=== PATIENT | female | born 1985 | race Caucasian/White ===

== ENCOUNTER 2016-04-17 22:19 | Emergency (ER) | payer OTHER ==
[2016-04-17 22:35] VITALS: BP 138/80
--- NOTE | 2016-04-17 23:19 | ED ---
General Adult HPI - General Chief complaint: Upper Respiratory Infection Stated complaint: abcess tooth, cough, leg pain Source: patient, RN notes reviewed, old records reviewed Mode of arrival: EMS Limitations: no limitations - History of Present Illness Initial comments: Chief complaint history of present illness this is a 30-year-old female with several complaints versus a productive cough on again off again for 2 weeks. No fever. The second complaint is chronic pain to her right lower tooth #32. She's been on antibiotics twice over the past 9 months states she did not finish the antibiotics the last time. States when she gets into the dental chair after the x-rays she freaks out and leaves. She is afraid to have the dental work done. She states she's saving up money to have the anesthetic to put her to sleep. She reports she smokes both cigarettes and marijuana so it's hard to save enough money to have the dentist put her to sleep. Patient also has asthma. Another reason why I strongly encouraged her to stop smoking. - Related Data Home Medications Medication Instructions Recorded Confirmed Albuterol Inhaler [Ventolin Hfa 2 puff INHALATION RT-Q6H PRN 05/12/14 04/17/16 Inhaler] Acetaminophen Tab [Tylenol Tab] 650 mg PO Q6H PRN 04/17/16 04/17/16 Benzocain/Benzalkonm Oral Gel 1 gm MM BID PRN 04/17/16 04/17/16 [Orajel Anesthetic Max Strength] Ibuprofen [Motrin] 400 mg PO Q6HR PRN 04/17/16 04/17/16 Previous Rx's Medication Instructions Recorded Azithromycin [Zithromax Z-pack] 250 mg PO DIRECTED #6 tab 04/17/16 Ibuprofen [Motrin] 600 mg PO Q6HR PRN #20 tab 04/17/16 Allergies Allergy/AdvReac Type Severity Reaction Status Date / Time morphine Allergy Dyspnea Verified 04/17/16 22:30 Review of Systems ROS Statement: Those systems with pertinent positive or pertinent negative responses have been documented in the HPI. Review of systems no complaint of headache or visual acuity changes. She has chronic pain to the tooth number to. She also reports productive cough greenish in color for 2 weeks. No chest pain no shortness of breath no abdominal pain no nausea no vomiting or diarrhea. On-again off-again discomfort to her legs no back pain or back issues. Able to ambulate full range of motion of her upper and lower extremities. All systems were reviewed. Past medical problems significant for heroin abuse up until 4 years ago continue to smoke marijuana cigarettes. She has history of asthma and chronic knee pain. Surgeries include , tonsillectomy, tubal ligation, 3 knee surgeries. Family history not. Patient has ALLERGIES to morphine. ROS Other: All systems not noted in ROS Statement are negative. Past Medical History Past Medical History: Asthma Additional Past Medical History / Comment(s): KNEE PAIN, MIGRAINES/ back pain History of Any Multi-Drug Resistant Organisms: MRSA Date of last positivie culture/infection: 10/23/2013 MDRO Source:: Buttock Past Surgical History: Section, Orthopedic Surgery, Tonsillectomy, Tubal Ligation Additional Past Surgical History / Comment(s): KNEE SURGERY X3 Past Psychological History: No Psychological Hx Reported Smoking Status: Current every day smoker Past Alcohol Use History: None Reported Past Drug Use History: Heroin, Marijuana General Exam - General Exam Comments Initial Comments: General: The patient is awake and alert, several complaints as described in the chief complaint. Vital signs show temperature 97.9 pulse 96 respiratory 20 pulse ox 95% room air blood pressure 130/80. Mildly elevated systolic noted. Patient will be advised to follow-up with family physician in next 1-4 weeks. Eye: Pupils are equal, round and reactive to light, extra-ocular movements are intact ; there is normal conjunctiva bilaterally. No signs of icterus. Ears, nose, mouth and throat: There are moist mucous membranes and no oral lesions. Though the patient complains of dental pain no significant evidence of dental caries that she describes. No evidence of obvious abscess on the gum margin. Neck: The neck is supple, there is no tenderness . Cardiovascular: There is a regular rate and rhythm. No murmur, rub or gallop is appreciated. Respiratory: Lungs are clear to auscultation, respirations are non-labored, breath sounds are equal. No wheezes, stridor, rales, or rhonchi. States she has green productive cough for 2 weeks. Smokes both marijuana and cigarettes. Gastrointestinal: No complaint of nausea vomiting or diarrhea. Back: No complains low back pain. Musculoskeletal: Occasional discomfort to her lower extremities does not prevent her from walking. No complaints of any balance problems. Cranial nerves, no complaint of any motor or sensory deficits. No focal or lateralizing findings noted. Skin: Skin is warm and dry and no rashes or lesions are noted. Psychiatric: Not complaining of any problems with depression. Limitations: no limitations Course Vital Signs 04/17/16 22:31 Temperature 97.9 F Pulse Rate 96 Respiratory 20 Rate Blood Pressure 138/80 O2 Sat by Pulse 95 Oximetry Medical Decision Making - Medical Decision Making Chest x-ray was done and reviewed by radiologist his impression is there is mild pulmonary vascular congestion. Chronic lung changes are suggested. There is no focal airspace opacity, pleural effusion or pneumothorax seen. Cardiac silhouette size within normal limits. The osseous structures are intact. Impression; mild pulmonary vascular congestion. No focal pneumonia. Chronic lung changes. As read by Dr. Holguin The patient will be placed on a Z-Moses. Told to follow-up with her family physician, her dentist. Stop smoking. Take ibuprofen for pain. Disposition Clinical Impression: Bronchitis, Toothache Disposition: HOME SELF-CARE Condition: Fair Instructions: Upper Respiratory Infection (ED), Toothache (ED) Additional Instructions: Stop smoking. Take Z-Moses until complete. Use ibuprofen for pain. Follow-up dentist. Prescriptions: Azithromycin [Zithromax Z-pack] 250 mg PO DIRECTED #6 tab Ibuprofen [Motrin] 600 mg PO Q6HR PRN #20 tab PRN Reason: Pain Time of Disposition: 23:33
--- NOTE | 2016-04-17 23:20 | XR ---
EXAMINATION TYPE: XR chest 2V DATE OF EXAM: 04/17/2016 11:02 PM COMPARISON: 02/14/2015 HISTORY: Productive cough. TECHNIQUE: Frontal and lateral views of the chest are obtained. FINDINGS: There is mild pulmonary vascular congestion. Chronic lung changes are suggested. There is no focal air space opacity, pleural effusion, or pneumothorax seen. The cardiac silhouette size is within normal limits. The osseous structures are intact. IMPRESSION: 1. Mild pulmonary vascular congestion. 2. No focal pneumonia. 3. Chronic lung changes.
[2016-04-17 23:42] VITALS: PULSE 80; RESP 18; TEMP 98.4
== END 2016-04-17 23:44 | disposition home or self-care (01) ==
LOC: EC 22:19
DX: J40 Bronchitis, not specified as acute or chronic (principal); K08.89 Other specified disorders of teeth and supporting structures; J45.909 Unspecified asthma, uncomplicated; Z88.5 Allergy status to narcotic agent; F12.90 Cannabis use, unspecified, uncomplicated; F17.210 Nicotine dependence, cigarettes, uncomplicated
CPT/HCPCS: 71020; 99283

== ENCOUNTER 2016-05-05 22:04 | Emergency (ER) | payer OTHER ==
[2016-05-05] MEDS ORDERED: IPRATROPIUM-ALBUTEROL 3 ML NEB INHALATION STA (22:35)
--- NOTE | 2016-05-05 22:49 | XR ---
EXAMINATION TYPE: XR chest 2V DATE OF EXAM: 05/05/2016 10:40 PM COMPARISON: 04/17/2016 HISTORY: Chest pain, cough. TECHNIQUE: Frontal and lateral views of the chest are obtained. FINDINGS: Mild peribronchial cuffing is noted with possible chronic bronchitis changes. There is mild pulmonary vascular congestion. There is no focal air space opacity, pleural effusion, or pneumothorax seen. The cardiac silhouette size is within normal limits. The osseous structures are intact. IMPRESSION: 1. Possible mild chronic bronchitis. 2. Pulmonary vascular congestion. 3. No focal pneumonia.
[2016-05-05] MEDS ORDERED: ORPHENADRINE 30 MG/ML 2 ML VIAL IM STA (23:27)
--- NOTE | 2016-05-05 23:45 | ED ---
URI HPI - General Chief Complaint: Upper Respiratory Infection Stated Complaint: IVORY Time Seen by Provider: 05/05/16 22:29 Source: patient, RN notes reviewed, old records reviewed Mode of arrival: ambulatory Limitations: no limitations - History of Present Illness Initial Comments: Patient is a 30 year old female with chief complaint of increased cough and back pain from coughing. Patient reports she is a smoker and has continued to smoke the same amount. Patient reports that the symptoms have lasted one week. She reports she feels short of breath withincreased cough. she states that her chest feels heavy. She denies diaphoresis, nausea, sinus congestion, sore throat , nausea, vomiting, abdominal pain. She states that she has a history of sick contacts with pneumonia and bronchitis. She reports productive cough. - Related Data Home Medications Medication Instructions Recorded Confirmed Albuterol Inhaler [Ventolin Hfa 2 puff INHALATION RT-Q6H PRN 05/12/14 04/17/16 Inhaler] Acetaminophen Tab [Tylenol Tab] 650 mg PO Q6H PRN 04/17/16 04/17/16 Benzocain/Benzalkonm Oral Gel 1 gm MM BID PRN 04/17/16 04/17/16 [Orajel Anesthetic Max Strength] Ibuprofen [Motrin] 400 mg PO Q6HR PRN 04/17/16 04/17/16 Previous Rx's Medication Instructions Recorded Azithromycin [Zithromax Z-pack] 250 mg PO DIRECTED #6 tab 04/17/16 Ibuprofen [Motrin] 600 mg PO Q6HR PRN #20 tab 04/17/16 Azithromycin [Zithromax Z-pack] 250 mg PO DIRECTED #6 tab 05/05/16 Cyclobenzaprine [Flexeril] 10 mg PO TID #15 tab 05/05/16 methylPREDNISolone Dose Pack 4 mg PO DIRECTED #21 package 05/05/16 [Medrol Dose Pack] Allergies Allergy/AdvReac Type Severity Reaction Status Date / Time morphine Allergy Dyspnea Verified 04/17/16 22:30 Review of Systems ROS Statement: Those systems with pertinent positive or pertinent negative responses have been documented in the HPI. ROS Other: All systems not noted in ROS Statement are negative. Past Medical History Past Medical History: Asthma Additional Past Medical History / Comment(s): KNEE PAIN, MIGRAINES/ back pain History of Any Multi-Drug Resistant Organisms: MRSA Date of last positivie culture/infection: 10/23/2013 MDRO Source:: Buttock Past Surgical History: Section, Orthopedic Surgery, Tonsillectomy, Tubal Ligation Additional Past Surgical History / Comment(s): KNEE SURGERY X3 Past Psychological History: No Psychological Hx Reported Smoking Status: Current every day smoker Past Alcohol Use History: None Reported Past Drug Use History: Heroin, Marijuana General Exam - General Exam Comments Initial Comments: Obese 30 year old female, no acute distress. Limitations: no limitations General appearance: alert, in no apparent distress Head exam: Present: atraumatic, normocephalic, normal inspection Eye exam: Present: normal appearance, PERRL, EOMI. Absent: scleral icterus, conjunctival injection, periorbital swelling ENT exam: Present: normal exam, normal oropharynx, mucous membranes moist, TM's normal bilaterally, normal external ear exam Neck exam: Present: normal inspection. Absent: tenderness, meningismus, lymphadenopathy Respiratory exam: Present: normal lung sounds bilaterally, rhonchi (clears with cough. ). Absent: respiratory distress, wheezes, rales, stridor Cardiovascular Exam: Present: regular rate, normal rhythm, normal heart sounds. Absent: systolic murmur, diastolic murmur, rubs, gallop, clicks GI/Abdominal exam: Present: soft, normal bowel sounds. Absent: distended, tenderness, guarding, rebound, rigid Extremities exam: Present: normal inspection, full ROM, normal capillary refill. Absent: tenderness, pedal edema, joint swelling, calf tenderness Back exam: Present: normal inspection Neurological exam: Present: alert, oriented X3, CN II-XII intact Psychiatric exam: Present: normal affect, normal mood Skin exam: Present: warm, dry, intact, normal color. Absent: rash Course Vital Signs 05/05/16 05/05/16 05/05/16 22:10 22:51 22:58 Temperature 96.9 F L Pulse Rate 81 84 Respiratory 20 22 Rate Blood Pressure 162/84 O2 Sat by Pulse 98 Oximetry 05/05/16 05/05/16 23:04 23:48 Temperature 98 F Pulse Rate 84 89 Respiratory 18 Rate Blood Pressure 133/75 O2 Sat by Pulse 98 Oximetry Medical Decision Making - Medical Decision Making Is a 30-year-old FEMA one week of increased cough and shortness of breath. Patient also reports she has a pain that radiates between her shoulder blades. EKG was performed EKG shows no any acute changes from previous one done on February 14. No evidence of ST elevation or T-wave inversions. Patient will be placed on steroid pack and instructed to complete her previously prescription of azithromycin and she did not take a few weeks ago Patient advised to follow up with primary care. Patients symptoms improved with douneb treatment. Return to the EC if any alarming signs or symptoms occur. Patient understand treatment plan will comply. Return parameters were discussed. 05/06/16 04:23 EKG shows normal sinus rhythm. Injury of 79 bpm. MS interval 140 ms. QRS duration 84 ms. QT/QTc is 36/442 ms. Compared this EKG with previous EKG done 02/14/2015 and there is no evidence of any acute abnormalities. - Radiology Data Radiology results: report reviewed Chest x-ray shows mild pulmonary vascular congestion consistent with chronic bronchitis. Disposition Clinical Impression: Bronchitis, Back muscle spasm Disposition: HOME SELF-CARE Condition: Good Instructions: Acute Bronchitis (ED) Additional Instructions: instructed to take antibiotic and steroid prescription instructed. Follow -up with primary care provider. Return to the EC if any alarming signs or symptoms occur. Prescriptions: Azithromycin [Zithromax Z-pack] 250 mg PO DIRECTED #6 tab Cyclobenzaprine [Flexeril] 10 mg PO TID #15 tab methylPREDNISolone Dose Pack [Medrol Dose Pack] 4 mg PO DIRECTED #21 package Referrals: None,Stated [Primary Care Provider] - 1-2 days Time of Disposition: 23:43
[2016-05-05 23:49] VITALS: BP 133/75; PULSE 89; RESP 18; TEMP 98
== END 2016-05-05 23:51 | disposition home or self-care (01) ==
LOC: EC 22:04
DX: J40 Bronchitis, not specified as acute or chronic (principal); M62.830 Muscle spasm of back; F17.200 Nicotine dependence, unspecified, uncomplicated; Z88.5 Allergy status to narcotic agent; Z79.899 Other long term (current) drug therapy
CPT/HCPCS: 99283; 96372; 94640; 93005; 71020; J2360

== ENCOUNTER 2016-09-13 14:46 | Emergency (ER) | payer OTHER ==
[2016-09-13 14:53] VITALS: BP 118/69; PULSE 84; RESP 20; TEMP 98.6
--- NOTE | 2016-09-13 16:48 | ED ---
Skin/Abscess/FB HPI - General Chief complaint: Skin/Abscess/Foreign Body Stated complaint: Poss Infection/Tattoo Time Seen by Provider: 09/13/16 16:33 Source: patient, RN notes reviewed Mode of arrival: ambulatory Limitations: no limitations - History of Present Illness Initial comments: Patient is a 31-year-old female presents to the emergency room for evaluation of infected tattoo. Patient states she had a tattoo done on her right breast on Sunday. Patient states Sunday she noticed swelling and pain. Patient states she has been applying Vaseline on the area. Patient states the area has become infected. Patient states area is very painful. Patient states she is up- to-date on her tetanus vaccine. Patient denies fevers or chills. Patient has headache or dizziness. - Related Data Home Medications Medication Instructions Recorded Confirmed Albuterol Inhaler [Ventolin Hfa 2 puff INHALATION RT-Q6H PRN 05/12/14 04/17/16 Inhaler] Acetaminophen Tab [Tylenol Tab] 650 mg PO Q6H PRN 04/17/16 04/17/16 Benzocain/Benzalkonm Oral Gel 1 gm MM BID PRN 04/17/16 04/17/16 [Orajel Anesthetic Max Strength] Ibuprofen [Motrin] 400 mg PO Q6HR PRN 04/17/16 04/17/16 Previous Rx's Medication Instructions Recorded Azithromycin [Zithromax Z-pack] 250 mg PO DIRECTED #6 tab 04/17/16 Ibuprofen [Motrin] 600 mg PO Q6HR PRN #20 tab 04/17/16 Azithromycin [Zithromax Z-pack] 250 mg PO DIRECTED #6 tab 05/05/16 Cyclobenzaprine [Flexeril] 10 mg PO TID #15 tab 05/05/16 methylPREDNISolone Dose Pack 4 mg PO DIRECTED #21 package 05/05/16 [Medrol Dose Pack] Cephalexin [Keflex] 500 mg PO Q6HR #40 cap 09/13/16 HYDROcodone/APAP 5-325MG [[place] 1 tab PO Q6HR PRN #12 tab 09/13/16 5-325] Mupirocin 2% Oint [Bactroban 2% 1 applic TOPICAL TID 10 Days 09/13/16 Oint] Allergies Allergy/AdvReac Type Severity Reaction Status Date / Time morphine Allergy Dyspnea Verified 09/13/16 14:53 Review of Systems ROS Statement: Those systems with pertinent positive or pertinent negative responses have been documented in the HPI. ROS Other: All systems not noted in ROS Statement are negative. Past Medical History Past Medical History: Asthma Additional Past Medical History / Comment(s): KNEE PAIN, MIGRAINES/ back pain, previous IVDA History of Any Multi-Drug Resistant Organisms: MRSA Date of last positivie culture/infection: 10/23/2013 MDRO Source:: Buttock Past Surgical History: Section, Orthopedic Surgery, Tonsillectomy, Tubal Ligation Additional Past Surgical History / Comment(s): KNEE SURGERY X3 Past Psychological History: No Psychological Hx Reported Smoking Status: Current every day smoker Past Alcohol Use History: None Reported Past Drug Use History: None Reported General Exam - General Exam Comments Initial Comments: sitting in exam room, no distress. Limitations: no limitations General appearance: alert, in no apparent distress Head exam: Present: atraumatic, normocephalic, normal inspection Eye exam: Present: normal appearance ENT exam: Present: normal exam Neck exam: Present: normal inspection Respiratory exam: Present: normal lung sounds bilaterally. Absent: respiratory distress Cardiovascular Exam: Present: regular rate, normal rhythm, normal heart sounds Extremities exam: Present: normal inspection Back exam: Present: normal inspection Neurological exam: Present: alert, oriented X3, CN II-XII intact, normal gait Psychiatric exam: Present: normal affect, normal mood Skin exam: Present: other (Star shaped tattoo over right breast, around the nipple. Erythema and warmth on palpation.) Course Vital Signs 09/13/16 09/13/16 14:49 17:21 Temperature 98.6 F 98.6 F Pulse Rate 84 84 Respiratory 20 20 Rate Blood Pressure 118/69 118/69 O2 Sat by Pulse 98 98 Oximetry Medical Decision Making - Medical Decision Making Patient is a 31-year-old female presents to the emergency room for evaluation of infected right breast tattoo. Patient be placed on mupirocin ointment and oral antibiotics. Advised patient to follow-up with primary care provider in 24 -48 hours for reevaluation. Advised patient to return for any worsening symptoms or fevers. Patient states she understands everything that was discussed with her. Case discussed Dr. Panda. Disposition Clinical Impression: Tattoo of skin, Cellulitis Disposition: HOME SELF-CARE Condition: Good Instructions: Cellulitis (ED) Additional Instructions: Take antibiotics every 6 hours. Apply mupirocin ointment 3 times a day. Keep the area clean and dry. Please follow-up with primary care provider for reevaluation in 24-48 hours. Take ibuprofen as needed for pain. Take [place] as needed for severe pain. If any new symptom arises or symptoms worsen, return to ER as soon as possible. Prescriptions: Cephalexin [Keflex] 500 mg PO Q6HR #40 cap HYDROcodone/APAP 5-325MG [[place] 5-325] 1 tab PO Q6HR PRN #12 tab PRN Reason: Pain Mupirocin 2% Oint [Bactroban 2% Oint] 1 applic TOPICAL TID 10 Days Referrals: Maria C Velasquez MD [STAFF PHYSICIAN] - 1-2 days Time of Disposition: 16:56
[2016-09-13] MEDS ORDERED: CEPHALEXIN 500 MG CAP PO STA (16:56)
[2016-09-13] MEDS ORDERED: MUPIROCIN 2% OINT 22 GM TUBE TOPICAL STA (17:03)
[2016-09-13] MEDS ORDERED: CEPHALEXIN 500MG STARTER PACK 4 CAP BTL PO STA (17:04)
[2016-09-13] MEDS ORDERED: HYDROcodone/APAP 5-325MG 1 EACH TAB PO STA (17:06)
== END 2016-09-13 17:21 | disposition home or self-care (01) ==
LOC: EC 14:46
DX: N61.0 Mastitis without abscess (principal); L81.8 Other specified disorders of pigmentation; F17.200 Nicotine dependence, unspecified, uncomplicated; Z88.5 Allergy status to narcotic agent
CPT/HCPCS: 99283

== ENCOUNTER 2016-10-25 01:13 | Emergency (ER) | payer OTHER ==
[2016-10-25] MEDS ORDERED: HYDROcodone/APAP 5-325MG 1 EACH TAB PO STA (01:31)
--- NOTE | 2016-10-25 01:33 | ED ---
General Adult HPI - General Chief complaint: Back Pain/Injury Stated complaint: Fall-Tailbone Injury Time Seen by Provider: 10/25/16 01:27 Source: patient, RN notes reviewed Mode of arrival: ambulatory Limitations: no limitations - History of Present Illness Initial comments: Patient 31-year-old female who presents emergency room today with a chief complaint of slip and fall that occurred just prior to arrival. Patient does admit that she landed on her tailbone. Does admit to pain locally to this area. States she is unable to sit down due to the pain. States worse certain movements. Denies any head injury or loss consciousness. Denies any bowel or bladder incontinence retention. Denies any saddle anesthesia. Denies any lumbar radiculopathy. She did not take any pain medication prior to arrival. Patient denies any recent fever, chills, shortness of breath, chest pain, abdominal pain, nausea or vomiting, numbness or tingling, dysuria or hematuria, constipation or diarrhea, headaches or visual changes, or any other complaints. - Related Data Home Medications Medication Instructions Recorded Confirmed Albuterol Inhaler [Ventolin Hfa 2 puff INHALATION RT-Q6H PRN 05/12/14 04/17/16 Inhaler] Acetaminophen Tab [Tylenol Tab] 650 mg PO Q6H PRN 04/17/16 04/17/16 Benzocain/Benzalkonm Oral Gel 1 gm MM BID PRN 04/17/16 04/17/16 [Orajel Anesthetic Max Strength] Ibuprofen [Motrin] 400 mg PO Q6HR PRN 04/17/16 04/17/16 Previous Rx's Medication Instructions Recorded Azithromycin [Zithromax Z-pack] 250 mg PO DIRECTED #6 tab 04/17/16 Ibuprofen [Motrin] 600 mg PO Q6HR PRN #20 tab 04/17/16 Azithromycin [Zithromax Z-pack] 250 mg PO DIRECTED #6 tab 05/05/16 Cyclobenzaprine [Flexeril] 10 mg PO TID #15 tab 05/05/16 methylPREDNISolone Dose Pack 4 mg PO DIRECTED #21 package 05/05/16 [Medrol Dose Pack] Cephalexin [Keflex] 500 mg PO Q6HR #40 cap 09/13/16 HYDROcodone/APAP 5-325MG [[place] 1 tab PO Q6HR PRN #12 tab 09/13/16 5-325] Mupirocin 2% Oint [Bactroban 2% 1 applic TOPICAL TID 10 Days 09/13/16 Oint] Allergies Allergy/AdvReac Type Severity Reaction Status Date / Time morphine Allergy Dyspnea Verified 10/25/16 01:26 Review of Systems ROS Statement: Those systems with pertinent positive or pertinent negative responses have been documented in the HPI. ROS Other: All systems not noted in ROS Statement are negative. Past Medical History Past Medical History: Asthma Additional Past Medical History / Comment(s): KNEE PAIN, MIGRAINES/ back pain, previous IVDA History of Any Multi-Drug Resistant Organisms: MRSA Date of last positivie culture/infection: 10/23/2013 MDRO Source:: Buttock Past Surgical History: Section, Orthopedic Surgery, Tonsillectomy, Tubal Ligation Additional Past Surgical History / Comment(s): KNEE SURGERY X3, c-sect x 4 Past Psychological History: No Psychological Hx Reported Smoking Status: Current every day smoker Past Alcohol Use History: None Reported Past Drug Use History: None Reported General Exam - General Exam Comments Initial Comments: General: The patient is awake and alert, in no distress, and does not appear acutely ill. Eye: Pupils are equal, round and reactive to light, extra-ocular movements are intact. No nystagmus. There is normal conjunctiva bilaterally. No signs of icterus. Ears, nose, mouth and throat: There are moist mucous membranes and no oral lesions. Neck: The neck is supple, there is no tenderness or JVD. Cardiovascular: There is a regular rate and rhythm. No murmur, rub or gallop is appreciated. Respiratory: Lungs are clear to auscultation, respirations are non-labored, breath sounds are equal. No wheezes, stridor, rales, or rhonchi. Musculoskeletal: Normal ROM. Normal appearance of cervical, thoracic, lumbar spine. No step-offs forms appreciated. No tenderness in cervical or thoracic spine. Mild tenderness in the lumbar spine from L2 to S1. Patient does have increased tenderness down into the sacrum. Strength 5/5. Sensation intact. Pulses equal bilaterally 2+. Neurological: A&O x 3. CN II-XII intact, There are no obvious motor or sensory deficits. Coordination appears grossly intact. Speech is normal. Skin: Skin is warm and dry and no rashes or lesions are noted. Psychiatric: Cooperative, appropriate mood & affect, normal judgment. Limitations: no limitations Course Vital Signs 10/25/16 01:23 Temperature 98.3 F Pulse Rate 111 H Respiratory 18 Rate Blood Pressure 175/109 O2 Sat by Pulse 98 Oximetry Medical Decision Making - Medical Decision Making X-rays reviewed and are negative for any acute fracture dislocation. Results were discussed with patient. Patient will be discharged home advised follow-up with [facility] family doctor over the next 2 days. Advised to use a pillow or a inflatable innertube for patient. Advised to return if any symptoms increase or worsen or for any other concerns. Disposition Clinical Impression: Contusion of coccyx Disposition: HOME SELF-CARE Condition: Good Instructions: Coccyx Injury (ED) Additional Instructions: Please follow-up the [facility] family doctor over the next 2 days. Please use cushion when sitting. Please return to emergency room for any other concerns. Referrals: None,Stated [Primary Care Provider] - 1-2 days Time of Disposition: 02:13
[2016-10-25 02:22] VITALS: RESP 18; TEMP 98.3
--- NOTE | 2016-10-25 02:30 | XR ---
EXAM: XR Lumbar Spine, 2 or 3 Views CLINICAL HISTORY: Prior on synapse, fall today, landed on tailbone, not tubal ligation, history of tailbone fx TECHNIQUE: Frontal and lateral views of the lumbar spine. COMPARISON: L spine films 05/12/14 FINDINGS: Vertebrae: No acute fracture. Normal alignment. Disc spaces: Mild L5-S1 disc space loss with spondylosis. Soft tissues: Unremarkable. IMPRESSION: 1. No acute fracture or malalignment. 2. Stable L5-S1 degenerative disc disease.
[2016-10-25 02:33] VITALS: BP 160/99; PULSE 100
--- NOTE | 2016-10-25 02:34 | XR ---
EXAM: XR Sacrum and Coccyx, 2 or more Views CLINICAL HISTORY: Prior on synapse, fall today, landed on tailbone, not tubal ligation, history of tailbone fx TECHNIQUE: Frontal and lateral views of the sacrum and coccyx. COMPARISON: Sacrum film 11/03/13 FINDINGS: Sacrum/coccyx: Old sacrococcygeal junction fracture. No acute fracture. Vertebrae: Visualized lumbar vertebrae are unremarkable. Soft tissues: Unremarkable. IMPRESSION: 1. No acute fracture or malalignment. Consider CT if there is further clinical concern. 2. Old sacrococcygeal junction fracture.
== END 2016-10-25 02:33 | disposition home or self-care (01) ==
LOC: EC 01:13
DX: S30.0XXA Contusion of lower back and pelvis, initial encounter (principal); F17.200 Nicotine dependence, unspecified, uncomplicated; Z88.5 Allergy status to narcotic agent; W01.0XXA Fall on same level from slipping, tripping and stumbling without subsequent striking against object, initial encounter; Y99.0 Civilian activity done for income or pay; Y92.69 Other specified industrial and construction area as the place of occurrence of the external cause
CPT/HCPCS: 72100; 72220; 99283

== ENCOUNTER 2017-07-09 11:19 | Inpatient (IN) | payer OTHER ==
[2017-07-09] MEDS ORDERED: ACETAMINOPHEN IV (For NPO) 1,000 MG in EMPTY BAG 1 BAG IVPB STA (12:20)
[2017-07-09] MEDS ORDERED: IBUPROFEN 600 MG TAB PO STA (12:20)
[2017-07-09] MEDS ORDERED: PIPERACILLIN-TAZOBACTAM 3.375 GM in DEXTROSE/WATER 1 50ML.BAG IVPB STA (12:46)
[2017-07-09] MEDS ORDERED: SODIUM CHLORIDE 0.9% 1,000 ML IV SCH (13:00)
[2017-07-09 13:13] LABS: Basophils # (A) 0.1 k/uL (0-0.2); Basophils % (A) 0 %; Eosinophils # (A) 0.2 k/uL (0-0.7); Eosinophils % (A) 1 %; HCT 43.4 % (34.0-46.0); HGB 14.1 gm/dL (11.4-16.0); Lymphocytes # (A) 0.8 k/uL (1.0-4.8); Lymphocytes % (A) 4 %; MCH 26.4 pg (25.0-35.0); MCHC 32.5 g/dL (31.0-37.0); MCV 81.3 fL (80.0-100.0); Mean Platelet Volume 10.2; Monocytes # (A) 0.8 k/uL (0-1.0); Monocytes % (A) 4 %; Neutrophils # (A) 18.9 k/uL (1.3-7.7); Neutrophils % (A) 91 %; Platelet Count 192 k/uL (150-450); RBC 5.34 m/uL (3.80-5.40); RDW 13.5 % (11.5-15.5); WBC 20.9 k/uL (3.8-10.6)
[2017-07-09 13:16] LABS: INR 1.1 (<1.2); Partial Thromboplastin Time 23.7 sec (22.0-30.0); Prothrombin Time 10.4 sec (9.0-12.0)
[2017-07-09 13:16] LABS: Appearance,Urine Cloudy (Clear); Bilirubin,Urine Negative (Negative); Blood,Urine Negative (Negative); Color,Urine Yellow; Glucose,Urine (UA) Negative (Negative); Ketones,Urine 1+ (Negative); Leukocyte Esterase,Urine Negative (Negative); Mucus,Urine Rare /hpf; Nitrite,Urine Negative (Negative); Protein,Urine Trace (Negative); Specific Gravity,Urine 1.015 (1.001-1.035); Squamous Epithelial Cell,Urine 3 /hpf (0-4); WBC,Urine 2 /hpf (0-5)
[2017-07-09] MEDS ORDERED: VANCOMYCIN IV PER PHARMACY 1 EACH MISC MISCELLANE PRN (13:24)
[2017-07-09 13:31] LABS: ALT 58 U/L (9-52); AST 32 U/L (14-36); Albumin 3.8 g/dL (3.5-5.0); Alkaline Phosphatase 95 U/L (38-126); Anion Gap 13 mmol/L; Blood Urea Nitrogen 8 mg/dL (7-17); Calcium 8.9 mg/dL (8.4-10.2); Carbon Dioxide 24 mmol/L (22-30); Chloride 99 mmol/L (98-107); Glucose 117 mg/dL (74-99); Sodium 136 mmol/L (137-145); Total Bilirubin 0.6 mg/dL (0.2-1.3); Total Protein 7.6 g/dL (6.3-8.2)
[2017-07-09] MEDS ORDERED: VANCOMYCIN 1,750 MG in SODIUM CHLORIDE 0.9% 250 ML IVPB STA (13:32)
[2017-07-09] MEDS: SODIUM CHLORIDE 0.9% 500 ML IV SCH ×2 (13:36→13:37)
[2017-07-09 13:38] LABS: Potassium 3.4 mmol/L (3.5-5.1)
--- NOTE | 2017-07-09 13:44 | ED ---
Recheck HPI <Evgeny Mason - Last Filed: 07/09/17 14:35> - General Source: patient, RN notes reviewed, old records reviewed Mode of arrival: ambulatory Limitations: no limitations <Юлия Hudson - Last Filed: 07/09/17 14:40> - General Chief Complaint: Recheck/Abnormal Lab/Rx Stated Complaint: fever/lump in leg & arms Time Seen by Provider: 07/09/17 12:08 - History of Present Illness Initial Comments: This patient is a pleasant 32-year-old female presents emergency department today with chief complaint of fever. She has a history of IV drug abuse. She reports that she uses IV heroin and crystal meth. Patient states that her last use was yesterday. She relates that she developed a fever. She mainly uses her right antecubital area to inject. She also reports that when that does not work she uses her right medial thigh. Patient was she noticed that her right medial thighs had some mild erythema over the site. She states that he has no palpable or superficial abscess at this time. She reports that she's had occasional episodes of chest pain and shortness of breath. She does smoke cigarettes and relates that her shortness of breath since related to her smoking habits. Patient states that she's had no abdominal pain. She did have an episode of vomiting today. She denies any changes in urination or bowel habits. (Юлия Hudson) - Related Data Home Medications Medication Instructions Recorded Confirmed No Known Home Medications [No 07/09/17 07/09/17 Known Home Medications] Allergies Allergy/AdvReac Type Severity Reaction Status Date / Time morphine Allergy Dyspnea Verified 07/09/17 12:08 Review of Systems ROS Other: All systems not noted in ROS Statement are negative. <Evgeny Mason - Last Filed: 07/09/17 14:35> ROS Other: All systems not noted in ROS Statement are negative. <Юлия Hudson - Last Filed: 07/09/17 14:40> ROS Statement: Those systems with pertinent positive or pertinent negative responses have been documented in the HPI. Past Medical History Past Medical History: Asthma Additional Past Medical History / Comment(s): KNEE PAIN, MIGRAINES/ back pain, previous IVDA History of Any Multi-Drug Resistant Organisms: MRSA Date of last positivie culture/infection: 10/23/2013 MDRO Source:: Buttock Past Surgical History: Section, Orthopedic Surgery Additional Past Surgical History / Comment(s): KNEE SURGERY X3 Past Psychological History: No Psychological Hx Reported Smoking Status: Current every day smoker Past Alcohol Use History: None Reported Past Drug Use History: Heroin, IV Drug Use, Methamphetamine <Юлия Hudson - Last Filed: 07/09/17 14:40> General Exam <Evgeny Mason - Last Filed: 07/09/17 14:35> Limitations: no limitations General appearance: alert, in no apparent distress Head exam: Present: atraumatic, normocephalic, normal inspection Eye exam: Present: normal appearance, PERRL, EOMI. Absent: scleral icterus, conjunctival injection, periorbital swelling ENT exam: Present: normal exam, mucous membranes moist Neck exam: Present: normal inspection. Absent: tenderness, meningismus, lymphadenopathy Respiratory exam: Present: normal lung sounds bilaterally. Absent: respiratory distress, wheezes, rales, rhonchi, stridor Cardiovascular Exam: Present: regular rate, normal rhythm, normal heart sounds. Absent: systolic murmur, diastolic murmur, rubs, gallop, clicks GI/Abdominal exam: Present: soft, normal bowel sounds. Absent: distended, tenderness, guarding, rebound, rigid Extremities exam: Present: normal inspection, full ROM, normal capillary refill , other (Patient has some mild erythema over the right medial calf. The area measures proximally 5 cm x 7 cm. No palpable abscess. ). Absent: tenderness, pedal edema, joint swelling, calf tenderness Back exam: Present: normal inspection Neurological exam: Present: alert, oriented X3, CN II-XII intact Psychiatric exam: Present: normal affect, normal mood Skin exam: Present: warm, dry, intact, normal color. Absent: rash <Юлия Hudson - Last Filed: 07/09/17 14:40> - General Exam Comments Initial Comments: This is a 32-year-old female. Alert and oriented. No distress. (Юлия Hudson) Vital Signs 07/09/17 11:36 Temperature 101.6 F H Pulse Rate 125 H Respiratory 18 Rate Blood Pressure 130/65 O2 Sat by Pulse 98 Oximetry Medical Decision Making - Lab Data Result diagrams: 07/09/17 12:41 07/09/17 12:41 <Evgeny Mason - Last Filed: 07/09/17 14:35> - Lab Data Result diagrams: 07/09/17 12:41 07/09/17 12:41 - Radiology Data Radiology results: report reviewed <Юлия Hudson - Last Filed: 07/09/17 14:40> - Medical Decision Making The patient was seen and examined. All diagnostics were reviewed. The case is discussed with internal medicine and they are agreeable to admission. The case is discussed with the PA and agree with the findings as documented. (Evgeny Mason) 30-year-old female with history of IV drug abuse presents emergency Department with 1 day of fever. She has a history of hepatitis swell. She's had a fever 102 upon arrival. Patient was given Motrin Tylenol and blood work was obtained. She has an area of superficial cellulitis over the right medial thigh. We did an ultrasound of that area which is probable superficial thrombophlebitis. Lactic acid is negative. She does meet sepsis criteria with heart rate of over 100, temperature 100.2 her white blood cell count is elevated at 20,000. Initially started the patient on Zosyn for cellulitis on the leg. He also added vancomycin with a history of IV drug abuse, there is possibility of endocarditis. Patient will be admitted at this time for continued IV antibiotics and hydration. Dr. Mason discussed with Dr. La. ( Юлия Hudson) - Lab Data Lab Results 07/09/17 07/09/17 07/09/17 Range/Units 12:40 12:41 12:41 WBC 20.9 H (3.8-10.6) k/uL RBC 5.34 (3.80-5.40) m/uL Hgb 14.1 (11.4-16.0) gm/dL Hct 43.4 (34.0-46.0) % MCV 81.3 (80.0-100.0) fL MCH 26.4 (25.0-35.0) pg MCHC 32.5 (31.0-37.0) g/dL RDW 13.5 (11.5-15.5) % Plt Count 192 (150-450) k/uL Neutrophils % 91 % Lymphocytes % 4 % Monocytes % 4 % Eosinophils % 1 % Basophils % 0 % Neutrophils # 18.9 H (1.3-7.7) k/uL Lymphocytes # 0.8 L (1.0-4.8) k/uL Monocytes # 0.8 (0-1.0) k/uL Eosinophils # 0.2 (0-0.7) k/uL Basophils # 0.1 (0-0.2) k/uL PT (9.0-12.0) sec INR (<1.2) APTT (22.0-30.0) sec Sodium 136 L (137-145) mmol/L Potassium 3.4 L (3.5-5.1) mmol/L Chloride 99 (98-107) mmol/L Carbon Dioxide 24 (22-30) mmol/L Anion Gap 13 mmol/L BUN 8 (7-17) mg/dL Creatinine 0.61 (0.52-1.04) mg/dL Est GFR (CKD-EPI)AfAm >90 (>60 ml/min/1.73 sqM) Est GFR (CKD-EPI)NonAf >90 (>60 ml/min/1.73 sqM) Glucose 117 H (74-99) mg/dL Plasma Lactic Acid Wagner (0.7-2.0) mmol/L Calcium 8.9 (8.4-10.2) mg/dL Total Bilirubin 0.6 (0.2-1.3) mg/dL AST 32 (14-36) U/L ALT 58 H (9-52) U/L Alkaline Phosphatase 95 (38-126) U/L Troponin I (0.000-0.034) ng/mL Total Protein 7.6 (6.3-8.2) g/dL Albumin 3.8 (3.5-5.0) g/dL Urine Color Yellow Urine Appearance Cloudy H (Clear) Urine pH 8.0 (5.0-8.0) Ur Specific [place] 1.015 (1.001-1.035) Urine Protein Trace H (Negative) Urine Glucose (UA) Negative (Negative) Urine Ketones 1+ H (Negative) Urine Blood Negative (Negative) Urine Nitrite Negative (Negative) Urine Bilirubin Negative (Negative) Urine Urobilinogen 2.0 (<2.0) mg/dL Ur Leukocyte Esterase Negative (Negative) Urine WBC 2 (0-5) /hpf Ur Squamous Epith Cells 3 (0-4) /hpf Urine Mucus Rare H (None) /hpf Influenza Type A RNA (Not Detectd) Influenza Type B (PCR) (Not Detectd) 07/09/17 07/09/17 07/09/17 Range/Units 12:41 12:41 12:41 WBC (3.8-10.6) k/uL RBC (3.80-5.40) m/uL Hgb (11.4-16.0) gm/dL Hct (34.0-46.0) % MCV (80.0-100.0) fL MCH (25.0-35.0) pg MCHC (31.0-37.0) g/dL RDW (11.5-15.5) % Plt Count (150-450) k/uL Neutrophils % % Lymphocytes % % Monocytes % % Eosinophils % % Basophils % % Neutrophils # (1.3-7.7) k/uL Lymphocytes # (1.0-4.8) k/uL Monocytes # (0-1.0) k/uL Eosinophils # (0-0.7) k/uL Basophils # (0-0.2) k/uL PT 10.4 (9.0-12.0) sec INR 1.1 (<1.2) APTT 23.7 (22.0-30.0) sec Sodium (137-145) mmol/L Potassium (3.5-5.1) mmol/L Chloride (98-107) mmol/L Carbon Dioxide (22-30) mmol/L Anion Gap mmol/L BUN (7-17) mg/dL Creatinine (0.52-1.04) mg/dL Est GFR (CKD-EPI)AfAm (>60 ml/min/1.73 sqM) Est GFR (CKD-EPI)NonAf (>60 ml/min/1.73 sqM) Glucose (74-99) mg/dL Plasma Lactic Acid Wagner 1.2 (0.7-2.0) mmol/L Calcium (8.4-10.2) mg/dL Total Bilirubin (0.2-1.3) mg/dL AST (14-36) U/L ALT (9-52) U/L Alkaline Phosphatase (38-126) U/L Troponin I (0.000-0.034) ng/mL Total Protein (6.3-8.2) g/dL Albumin (3.5-5.0) g/dL Urine Color Urine Appearance (Clear) Urine pH (5.0-8.0) Ur Specific [place] (1.001-1.035) Urine Protein (Negative) Urine Glucose (UA) (Negative) Urine Ketones (Negative) Urine Blood (Negative) Urine Nitrite (Negative) Urine Bilirubin (Negative) Urine Urobilinogen (<2.0) mg/dL Ur Leukocyte Esterase (Negative) Urine WBC (0-5) /hpf Ur Squamous Epith Cells (0-4) /hpf Urine Mucus (None) /hpf Influenza Type A RNA Not Detected (Not Detectd) Influenza Type B (PCR) Not Detected (Not Detectd) 07/09/17 Range/Units 12:41 WBC (3.8-10.6) k/uL RBC (3.80-5.40) m/uL Hgb (11.4-16.0) gm/dL Hct (34.0-46.0) % MCV (80.0-100.0) fL MCH (25.0-35.0) pg MCHC (31.0-37.0) g/dL RDW (11.5-15.5) % Plt Count (150-450) k/uL Neutrophils % % Lymphocytes % % Monocytes % % Eosinophils % % Basophils % % Neutrophils # (1.3-7.7) k/uL Lymphocytes # (1.0-4.8) k/uL Monocytes # (0-1.0) k/uL Eosinophils # (0-0.7) k/uL Basophils # (0-0.2) k/uL PT (9.0-12.0) sec INR (<1.2) APTT (22.0-30.0) sec Sodium (137-145) mmol/L Potassium (3.5-5.1) mmol/L Chloride (98-107) mmol/L Carbon Dioxide (22-30) mmol/L Anion Gap mmol/L BUN (7-17) mg/dL Creatinine (0.52-1.04) mg/dL Est GFR (CKD-EPI)AfAm (>60 ml/min/1.73 sqM) Est GFR (CKD-EPI)NonAf (>60 ml/min/1.73 sqM) Glucose (74-99) mg/dL Plasma Lactic Acid Wagner (0.7-2.0) mmol/L Calcium (8.4-10.2) mg/dL Total Bilirubin (0.2-1.3) mg/dL AST (14-36) U/L ALT (9-52) U/L Alkaline Phosphatase (38-126) U/L Troponin I <0.012 (0.000-0.034) ng/mL Total Protein (6.3-8.2) g/dL Albumin (3.5-5.0) g/dL Urine Color Urine Appearance (Clear) Urine pH (5.0-8.0) Ur Specific [place] (1.001-1.035) Urine Protein (Negative) Urine Glucose (UA) (Negative) Urine Ketones (Negative) Urine Blood (Negative) Urine Nitrite (Negative) Urine Bilirubin (Negative) Urine Urobilinogen (<2.0) mg/dL Ur Leukocyte Esterase (Negative) Urine WBC (0-5) /hpf Ur Squamous Epith Cells (0-4) /hpf Urine Mucus (None) /hpf Influenza Type A RNA (Not Detectd) Influenza Type B (PCR) (Not Detectd) 07/09/17 14:27 EKG shows sinus tachycardia, inferior infarct age undetermined. Ventricular rate of 107 bpm. SC interval 1 0 ms. QRS duration 88 ms. QT QTc is 354/472 ms. (Юлия Hudson ) - Radiology Data Right leg US is negative for DVT. The right medial thigh and area of redness shows probable superficial thrombophlebitis within the great saphenous vein. Chest x-ray was reviewed by me as negative for any acute process. (Юлия Hudson) Disposition <Evgeny Mason - Last Filed: 07/09/17 14:35> Time of Disposition: 14:38 <Юлия Hudson - Last Filed: 07/09/17 14:40> Clinical Impression: Sepsis, IVDU (intravenous drug user), Thrombophlebitis of leg, right, Leukocytosis Disposition: ADMITTED IP TO THIS HOSP Condition: Stable Referrals: None,Stated [Primary Care Provider] - 1-2 days
--- NOTE | 2017-07-09 14:27 | US ---
EXAMINATION TYPE: US venous doppler duplex LE RT DATE OF EXAM: 07/09/2017 2:03 PM COMPARISON: NONE CLINICAL HISTORY: Pain. Pt has history of drug abuse, has redness right medial thigh where recent IV drug use was injected SIDE PERFORMED: Right TECHNIQUE: The lower extremity deep venous system is examined utilizing real time linear array sonog lucia with graded compression, doppler sonography and color-flow sonography. VESSELS IMAGED: External Iliac Vein (EIV) Common Femoral Vein Deep Femoral Vein Greater Saphenous Vein * Femoral Vein Popliteal Vein Small Saphenous Vein * Proximal Calf Veins (* superficial vessels) Grayscale, color doppler, spectral doppler imaging performed of the deep veins of the lower extremity . There is normal flow, compressibility, vascular waveforms. IMPRESSION: Right Leg: Negative for DVT, right medial thigh in area of redness shows probable supe rficial thrombophlebitis within the GSV
--- NOTE | 2017-07-09 14:36 | XR ---
EXAMINATION TYPE: XR chest 2V DATE OF EXAM: 07/09/2017 COMPARISON: May 2016 HISTORY: Chest pain TECHNIQUE: Frontal and lateral views of the chest are obtained. FINDINGS: There is no focal air space opacity. No evidence for pneumothorax. No pleural effusion. The cardiac silhouette size is within normal limits. The osseous structures are grossly intact. IMPRESSION: 1. No acute cardiopulmonary process.
[2017-07-09] MEDS ORDERED: NALOXONE 0.4 MG/ML 1 ML VIAL IV PRN (14:40)
[2017-07-09] MEDS ORDERED: IBUPROFEN 400 MG TAB PO PRN (14:40)
[2017-07-09] MEDS ORDERED: ONDANSETRON 4 MG/2 ML VIAL IVP PRN (14:40)
[2017-07-09] MEDS ORDERED: KETOROLAC 30 MG/ML 1 ML VIAL IVP PRN (14:40)
[2017-07-09] MEDS ORDERED: BISACODYL 5 MG TABLET.DR PO PRN (14:40)
[2017-07-09] MEDS ORDERED: ACETAMINOPHEN TAB 325 MG TAB PO PRN (14:40)
--- NOTE | 2017-07-09 15:18 | P.HPIM ---
History of Present Illness H&P Date: 07/09/17 Chief Complaint: Fevers and chills 32-year-old female presents emergency department today with chief complaint of fever. She has a history many years of of IV drug abuse, she uses IV heroin and crystal meth on a daily basis. Last use was this morning at 6 AM. Associated symptoms include chills and mild pain in the right thigh where she usually injects herself with drugs, vomiting today. Most of the time she injects in the thigh but when that doesn't work she uses her right arm. She has also been having left lower pleuritic chest pain, as well as mild shortness of breath for the last 2 weeks. She was evaluated at [facility] for the chest pain several weeks ago and wasn't found to have acute event. She does have history of asthma and uses albuterol as needed a daily basis. She told me that she has history of cellulitis and abscesses secondary to her drug use. Patient otherwise denied having any abdominal pain, diarrhea, cough, headaches, leg or arm swelling. In the emergency department she was found to be febrile and tachycardic, she was subsequently admitted to the hospital for further evaluation and management. Review of Systems 12 point review of system performed, negative except HPI Past Medical History Past Medical History: Asthma Additional Past Medical History / Comment(s): KNEE PAIN, MIGRAINES/ back pain, previous IVDA History of Any Multi-Drug Resistant Organisms: MRSA Date of last positivie culture/infection: 10/23/2013 MDRO Source:: Buttock Past Surgical History: Section, Orthopedic Surgery Additional Past Surgical History / Comment(s): KNEE SURGERY X3 Past Psychological History: No Psychological Hx Reported Smoking Status: Current every day smoker Past Alcohol Use History: None Reported Past Drug Use History: Heroin, IV Drug Use, Methamphetamine Medications and Allergies Home Medications Medication Instructions Recorded Confirmed Type No Known Home Medications [No 07/09/17 07/09/17 History Known Home Medications] Allergies Allergy/AdvReac Type Severity Reaction Status Date / Time morphine Allergy Dyspnea Verified 07/09/17 12:08 Physical Exam Vitals: Vital Signs Temp Pulse Resp BP Pulse Ox 07/09/17 11:36 101.6 F H 125 H 18 130/65 98 Intake and Output 07/09/17 07/09/17 07/09/17 06:59 14:59 22:59 Other: Weight 104.326 kg Constitutional: No acute distress, conversant, pleasant Eyes:Anicteric sclerae, moist conjunctiva, no lid-lag, PERRLA, ENMT: Oropharynx clear, no erythema, exudates Neck: Supple, FROM, no masses, or JVD, No carotid bruits, No thyromegaly Lungs: Clear to auscultation, Clear to percussion, Normal respiratory effort, no accessory muscle use Cardiovascular: Tachycardic, regular , No murmurs, gallops, or rubs, No peripheral edema Abdominal: Soft, Nontender, no guarding, rebound or rigidity, Normoactive bowel sounds, No hepatomegaly, No splenomegaly, No palpable mass Skin: Multiple scars and injection klein seen in both legs and arms. Right thigh with slight erythema around the injection site as well as an area of induration/subcutaneous nodule few centimeters beyond that erythema. Normal temperature, No ulcers Extremities: No digital cyanosis, No clubbing, Pedal pulses intact and symmetrical, Radial pulses intact and symmetrical, No calf tenderness Psychiatric: Alert and oriented to person, place and time, appropriate affect, intact judgement Neuro: Muscles Strength 5/5 in all 4 extremities, Sensation to light touch grossly present throughout, Cranial nerves II-XII grossly intact, no focal sensory deficits Results CBC & Chem 7: 07/09/17 12:41 07/09/17 12:41 Labs: Abnormal Lab Results - Last 24 Hours (Table) 07/09/17 07/09/17 07/09/17 Range/Units 12:40 12:41 12:41 WBC 20.9 H (3.8-10.6) k/uL Neutrophils # 18.9 H (1.3-7.7) k/uL Lymphocytes # 0.8 L (1.0-4.8) k/uL Sodium 136 L (137-145) mmol/L Potassium 3.4 L (3.5-5.1) mmol/L Glucose 117 H (74-99) mg/dL ALT 58 H (9-52) U/L Urine Appearance Cloudy H (Clear) Urine Protein Trace H (Negative) Urine Ketones 1+ H (Negative) Urine Mucus Rare H (None) /hpf Assessment and Plan Plan: #1 Acute sepsis/acute right lower extremity cellulitis Likely secondary to drug use She meets sepsis criteria because she is tachycardic, has a fever Start broad-spectrum antibiotics Zosyn and vancomycin Check lactic acid IV fluids per sepsis protocol If no improvement within the next couple of days she might need incision and drainage by surgery of the right leg forming abscess Blood cultures sent in the emergency department, will follow #2 Drug use and smoking Counseled to quit Check HIV and hepatitis panel #3 Chronic asthma Continue albuterol when necessary No exacerbation #4 DVT prophylaxis Patient is ambulatory, no anticoagulation Sepsis - Sepsis Sepsis Focused Exam #1 Sepsis Focused Exam Date: 07/09/17 Sepsis Focused Exam Time: 15:00 Sepsis Focused Exam Complete: Yes Vital Signs & RN Notes Reviewed: Yes Capillary Refill: < 2 Seconds: Fingers, Toes Peripheral Pulses: Normal: Radial (R), Radial (L), Posterior Tibialis (R), Posterior Tibialis (L), Dorsalis Pedis (R), Dorsalis Pedis (L) Skin Color: Normal for Patient Respiratory Exam: normal lung sounds Cardiovascular Exam: tachycardia
[2017-07-09] MEDS ORDERED: ALBUTEROL NEBULIZED 2.5 MG/3 ML INHALATION PRN (15:19)
[2017-07-09] MEDS ORDERED: SODIUM CHLORIDE 0.9% 2,000 ML IV STA (15:19)
[2017-07-09] MEDS ORDERED: NICOTINE 21MG/24HR PATCH TRANSDERM SCH (18:45)
[2017-07-09 20:37] VITALS: BP 147/84; PULSE 80; RESP 18; TEMP 97.9
--- NOTE | 2017-07-09 20:42 | P.PN ---
Progress Note - Text Progress Note Date: 07/09/17 Notified by nurse patient wanting to leave AGAINST MEDICAL ADVICE , went to the patient's room. Patient reports that she feels much better and that the redness of her right lower extremity is significantly improving, reports that she called her right and they're waiting outside. Reports that she is an IV drug user and that we can either take her IV out or she can remove it herself. Requesting antibiotics, review of chart indicates the patient has no longer tachycardic or febrile, Doppler ultrasound negative for DVT show some superficial thrombophlebitis, area with resolving erythema. Discussed with the patient that I think that she should stay at least tonight, however she is unwilling and wants to go. They told her that she would need to send the AMA form and she voiced understanding. Sent a prescription for Bactrim to her pharmacy
[2017-07-10 01:06] LABS: Hepatitis A Antibody IgM Non-Reactive (Non-Reactive); Hepatitis B Core IgM Non-Reactive (Non-Reactive)
[2017-07-10 02:10] LABS: HIV AB P24 Non-Reactive (Non-Reactive); HIV P24 AG Non-Reactive (Non-Reactive)
[2017-07-10] MEDS ORDERED: VANCOMYCIN 1,750 MG in SODIUM CHLORIDE 0.9% 250 ML IVPB SCH (04:00)
[2017-07-10] MEDS ORDERED: PANTOPRAZOLE 40 MG/10 ML VIAL IV SCH (09:00)
--- NOTE | 2017-07-10 17:22 | P.DS ---
Providers Date of admission: 07/09/17 14:34 Expected date of discharge: 07/09/17 Attending physician: Dimitrios Cortez MD Primary care physician: Stated None - Discharge Diagnosis(es) (1) Sepsis Status: Acute (2) Thrombophlebitis of leg, right Status: Acute (3) IVDU (intravenous drug user) Status: Acute (4) Chronic asthma Status: Acute Hospital Course: Patient is a 32-year-old female with a past medical history of asthma , intravenous drug use, migraine, and chronic knee pain who presented to the emergency department with complaints of fever. She had been using IV heroin and crystal meth on a daily basis. She then noted some mild right thigh pain. On arrival to the emergency department she had a fever of 101.6 and was tachycardic to 125. She was noted to have a white blood cell count of 20.9. She was slightly hypokalemic at 3.4. She underwent an EKG which showed sinus tachycardia but no significant ST-T wave changes. Chest x-ray showed no acute cardiopulmonary process. Lower extremity venous Doppler was negative for DVT but showed superficial thrombophlebitis in the greater saphenous vein. She was given a bolus of normal saline and was started on IV fluids. She was started on IV Vanco and was admitted to the general medical floor for further monitoring and care. I and arrival to the floor her Zosyn and vancomycin were ordered. Blood cultures had been done in the ER. Hepatitis panel was ordered as well. Her lactic acid was found to be 1.2 and on repeat 1.8. Unfortunately , on the evening of admission she decided to leave AGAINST MEDICAL ADVICE. Dr. Ceballos did see the patient and urged her to stay however she continued to want to leave AGAINST MEDICAL ADVICE. She was requesting antibiotics. They did give her prescription of Bactrim to treat her cellulitis and thrombophlebitis. She subsequently left AGAINST MEDICAL ADVICE. I did not personally to see this patient but has only aided in creating a summary of care as she was not truly discharged and left AGAINST MEDICAL ADVICE. I was not involved directly in her care. A total of 20 minutes was spent preparing this summary of care. Pertinent Studies: Lower extremity venous Doppler-thrombophlebitis of the superficial saphenous vein Chest x-ray-no acute process Patient Condition at Discharge: Undetermined Plan - Discharge Summary Discharge Rx Participant: Yes New Discharge Prescriptions: New Sulfamethox-Tmp 800-160Mg [Bactrim DS 800-160 mg] 1 tab PO Q12HR #14 tab Discharge Medication List Sulfamethox-Tmp 800-160Mg [Bactrim DS 800-160 mg] 1 tab PO Q12HR #14 tab [Rx] Follow up Appointment(s)/Referral(s): None,Stated [Primary Care Provider] - 1-2 days Discharge Disposition: Left Against Medical Advice
== END 2017-07-09 20:38 | disposition left against medical advice (07) | DRG 872 ==
LOC: EC 11:19 → 3SUR 14:34
PROVIDERS: ADMIT Internal Medicine; ATTEND Internal Medicine
DX: A41.9 Sepsis, unspecified organism (principal); I38 Endocarditis, valve unspecified; L03.115 Cellulitis of right lower limb; I80.00 Phlebitis and thrombophlebitis of superficial vessels of unspecified lower extremity; F11.90 Opioid use, unspecified, uncomplicated; F15.90 Other stimulant use, unspecified, uncomplicated; F17.210 Nicotine dependence, cigarettes, uncomplicated; J45.909 Unspecified asthma, uncomplicated; Z53.21 Procedure and treatment not carried out due to patient leaving prior to being seen by health care provider; G89.29 Other chronic pain; M25.569 Pain in unspecified knee; E87.6 Hypokalemia; Z86.14 Personal history of Methicillin resistant Staphylococcus aureus infection; Z86.69 Personal history of other diseases of the nervous system and sense organs
CPT/HCPCS: 36415; 71046; 80053; 80074; 81001; 83605; 84484; 85025; 85610; 85730; 87040; 87086; 87390; 87502; 93005; 96365; 96366; 96367; 99285

== ENCOUNTER 2017-07-29 10:28 | Emergency (ER) | payer OTHER ==
[2017-07-29] MEDS ORDERED: IBUPROFEN 800 MG TAB PO STA (11:06)
[2017-07-29] MEDS ORDERED: ACETAMINOPHEN TAB 500 MG TAB PO STA (11:06)
[2017-07-29] MEDS ORDERED: IPRATROPIUM-ALBUTEROL 3 ML NEB INHALATION STA (11:06)
[2017-07-29] MEDS ORDERED: LEVOFLOXACIN 750 MG TAB PO STA (11:06)
--- NOTE | 2017-07-29 12:11 | XR ---
EXAMINATION TYPE: XR ribs RT w pa chest x-ray , 5 VIEWS DATE OF EXAM ORDERED: 07/29/2017 HISTORY: Pain. COMPARISON: Previous chest x-ray dated 07/09/2017. FINDINGS: The heart projects enlarged. The lungs are clear. Pleural spaces are clear. There is no fernanda dence of pneumothorax. No displaced rib fracture is seen. IMPRESSION: NO ACUTE INTRATHORACIC ABNORMALITY OR DISPLACED RIB FRACTURE.
--- NOTE | 2017-07-29 12:58 | ED ---
General Adult HPI - General Chief complaint: Back Pain/Injury Stated complaint: rt sided back pain Time Seen by Provider: 07/29/17 10:43 Source: patient, RN notes reviewed, old records reviewed Mode of arrival: ambulatory Limitations: no limitations - History of Present Illness Initial comments: This is a 32-year-old female to the ER for evaluation per patient is a for evaluation of right-sided pain. Patient states she had an injury about 10 days ago, has since had fever cough congestion shortness of breath. No travel she no sick contacts. Taking any medications. She does have asthma - Related Data Home Medications Medication Instructions Recorded Confirmed Albuterol Inhaler [Ventolin Hfa 1 - 2 puff INHALATION Q6HR PRN 07/29/17 07/29/17 Inhaler] Previous Rx's Medication Instructions Recorded Albuterol Nebulized [Ventolin 2.5 mg INHALATION Q4H PRN #25 nebu 07/29/17 Nebulized] Albuterol Sulfate [Proair Hfa] 1 - 2 puff INHALATION Q4H PRN #1 07/29/17 inhaler Benzonatate [Tessalon Perles] 100 mg PO TID PRN #15 capsule 07/29/17 Naproxen [Naprosyn] 500 mg PO Q12HR PRN #30 tab 07/29/17 predniSONE 50 mg PO DAILY #5 tab 07/29/17 Allergies Allergy/AdvReac Type Severity Reaction Status Date / Time morphine Allergy Dyspnea Verified 07/29/17 10:33 Review of Systems ROS Statement: Those systems with pertinent positive or pertinent negative responses have been documented in the HPI. ROS Other: All systems not noted in ROS Statement are negative. Past Medical History Past Medical History: Asthma, Liver Disease, Osteoarthritis (OA) Additional Past Medical History / Comment(s): KNEE PAIN, MIGRAINES/ back pain, current IVDA, hep c(no tx yet),shingles 2009 History of Any Multi-Drug Resistant Organisms: MRSA Date of last positivie culture/infection: 10/23/2013 MDRO Source:: rt Buttock Past Surgical History: Adenoidectomy, Section, Orthopedic Surgery, Tonsillectomy, Tubal Ligation Additional Past Surgical History / Comment(s): c-sections x4, x2 rt knee lateral release sx, lt patella/lig sx Past Anesthesia/Blood Transfusion Reactions: No Reported Reaction Past Psychological History: No Psychological Hx Reported Smoking Status: Current every day smoker - Past Family History Mother Family Medical History: COPD Additional Family Medical History / Comment(s): emphysema, smoker Father Family Medical History: Coronary Artery Disease (CAD) Additional Family Medical History / Comment(s): triple bypalety age 32, alcoholic, smoker General Exam Limitations: no limitations General appearance: alert, in no apparent distress Head exam: Present: atraumatic, normocephalic, normal inspection Eye exam: Present: normal appearance, PERRL, EOMI. Absent: scleral icterus, conjunctival injection, periorbital swelling ENT exam: Present: normal exam, mucous membranes moist Neck exam: Present: normal inspection. Absent: tenderness, meningismus, lymphadenopathy Respiratory exam: Present: normal lung sounds bilaterally, wheezes. Absent: respiratory distress, rales, rhonchi, stridor Cardiovascular Exam: Present: normal rhythm, tachycardia, normal heart sounds. Absent: systolic murmur, diastolic murmur, rubs, gallop, clicks GI/Abdominal exam: Present: soft, normal bowel sounds. Absent: distended, tenderness, guarding, rebound, rigid Extremities exam: Present: normal inspection, full ROM, normal capillary refill. Absent: tenderness, pedal edema, joint swelling, calf tenderness Back exam: Present: normal inspection Neurological exam: Present: alert, oriented X3, CN II-XII intact Psychiatric exam: Present: normal affect, normal mood Skin exam: Present: warm, dry, intact, normal color. Absent: rash Course Vital Signs 07/29/17 07/29/17 07/29/17 10:34 11:43 11:50 Temperature 100.6 F H Pulse Rate 103 H 106 H 104 H Respiratory 18 16 16 Rate Blood Pressure 140/91 O2 Sat by Pulse 97 Oximetry 07/29/17 13:22 Temperature 99.1 F Pulse Rate 92 Respiratory 20 Rate Blood Pressure 147/81 O2 Sat by Pulse 97 Oximetry Medical Decision Making - Medical Decision Making 32 female the ER with positive significant bronchitis likely pneumonia, will discharge home on antibiotics breathing treatments. Patient encouraged to return to ER if symptoms worsen, patient does not want to stay in the hospital at this time - Radiology Data Radiology results: report reviewed (Chest x-rays negative for pneumonia), image reviewed Disposition Clinical Impression: Acute bronchitis, Fever Disposition: HOME SELF-CARE Condition: Good Instructions: Fever in Adults (ED), Community Acquired Pneumonia (ED) Prescriptions: Albuterol Nebulized [Ventolin Nebulized] 2.5 mg INHALATION Q4H PRN #25 nebu PRN Reason: Shortness Of Breath Albuterol Sulfate [Proair Hfa] 1 - 2 puff INHALATION Q4H PRN #1 inhaler PRN Reason: Shortness Of Breath Benzonatate [Tessalon Perles] 100 mg PO TID PRN #15 capsule PRN Reason: Cough Naproxen [Naprosyn] 500 mg PO Q12HR PRN #30 tab PRN Reason: Pain predniSONE 50 mg PO DAILY #5 tab Is patient prescribed a controlled substance at d/c from ED?: No Referrals: None,Stated [Primary Care Provider] - 1-2 days
[2017-07-29 13:25] VITALS: BP 147/81; PULSE 92; RESP 20; TEMP 99.1
== END 2017-07-29 13:25 | disposition home or self-care (01) ==
LOC: EC 10:28
DX: J20.9 Acute bronchitis, unspecified (principal); J45.909 Unspecified asthma, uncomplicated; F17.200 Nicotine dependence, unspecified, uncomplicated; Z86.14 Personal history of Methicillin resistant Staphylococcus aureus infection; Z86.19 Personal history of other infectious and parasitic diseases; Z88.5 Allergy status to narcotic agent
CPT/HCPCS: 94640; 99284

== ENCOUNTER 2018-09-13 09:51 | Emergency (ER) | payer OTHER ==
[2018-09-13 10:01] VITALS: BP 135/86; PULSE 76; RESP 18; TEMP 98.3
[2018-09-13] MEDS ORDERED: AZITHROMYCIN 500 MG TAB PO STA (10:27)
[2018-09-13] MEDS ORDERED: cefTRIAXone 1,000 MG VIAL (IM USE) IM STA ×2 (10:29→10:34)
--- NOTE | 2018-09-13 10:39 | XR ---
EXAMINATION TYPE: XR chest 2V DATE OF EXAM: 09/13/2018 COMPARISON: 07/29/2017 HISTORY: Cough and chest pain TECHNIQUE: Frontal and lateral views of the chest are obtained. FINDINGS: Very minimal airspace disease at the right costophrenic angle creates haziness of the righ t costophrenic angle although similar to the prior of 2018 and likely related to chronic atelectasis. Remainder the lungs are well aerated. Cardiomediastinal silhouette is upper limits of normal unchang ed from the prior. Mild multilevel degenerative changes of the spine. Overall there are slightly low lung volumes. IMPRESSION: Chronic minimal airspace disease at the right costophrenic angle is unchanged from 2018 and likely relates to chronic atelectasis. No acute cardiopulmonary pathology.
--- NOTE | 2018-09-13 10:44 | ED ---
Abdominal Pain HPI - General Chief Complaint: Abdominal Pain Stated Complaint: Hand swollen/poss std Time Seen by Provider: 09/13/18 10:03 Source: patient Mode of arrival: ambulatory Limitations: no limitations - History of Present Illness Initial Comments: Patient is a 33-year-old female presents emergency Department for erythema on the left hand, urinary and vaginal symptoms. Patient reports the erythema on the posterior aspect the left hand started 3 days ago . Patient reports that she is an IV drug user and uses the location is an injection site. Patient reports mild pain that is exacerbated with finger movement. Patient denies any numbness or tingling. Patient reports vaginal symptoms of whitish bernard discharge with a fishy odor for approximately 1 week. Patient also report increased urgency, frequency and dysuria. Patient reports unprotected sex and is concerned about STDs. Patient denies hematuria, hematochezia or melena. Patient reports mild superpubic pain but no abdominal, flank or back pain. Patient denies taking any medication to alleviate the pain. Patient also reports mild productive cough that has been developing over 2 weeks. Patient states that she is a smoker. Patient denies nausea, vomiting, diarrhea, headache, shortness of breath chest pain or chest tightness.. Patient denies fever but reports intermittent chills. - Related Data Home Medications Medication Instructions Recorded Confirmed Albuterol Inhaler [Ventolin Hfa 1 - 2 puff INHALATION Q6HR PRN 07/29/17 07/29/17 Inhaler] Previous Rx's Medication Instructions Recorded Albuterol Nebulized [Ventolin 2.5 mg INHALATION Q4H PRN #25 nebu 07/29/17 Nebulized] Albuterol Sulfate [Proair Hfa] 1 - 2 puff INHALATION Q4H PRN #1 07/29/17 inhaler Benzonatate [Tessalon Perles] 100 mg PO TID PRN #15 capsule 07/29/17 Naproxen [Naprosyn] 500 mg PO Q12HR PRN #30 tab 07/29/17 predniSONE 50 mg PO DAILY #5 tab 07/29/17 Cephalexin [Keflex] 500 mg PO Q6HR #40 cap 09/13/18 Sulfamethox-Tmp 800-160Mg [Bactrim 1 each PO Q12HR #20 tab 09/13/18 Ds] metroNIDAZOLE [Flagyl] 500 mg PO BID #14 tab 09/13/18 Allergies Allergy/AdvReac Type Severity Reaction Status Date / Time morphine Allergy Dyspnea Verified 09/13/18 10:01 Review of Systems ROS Statement: Those systems with pertinent positive or pertinent negative responses have been documented in the HPI. ROS Other: All systems not noted in ROS Statement are negative. Past Medical History Past Medical History: Asthma, Liver Disease, Osteoarthritis (OA) Additional Past Medical History / Comment(s): KNEE PAIN, MIGRAINES/ back pain,current IVDA, hep c(no tx yet),shingles 2008 History of Any Multi-Drug Resistant Organisms: MRSA Date of last positivie culture/infection: 10/23/2013 MDRO Source:: rt Buttock Past Surgical History: Adenoidectomy, Section, Orthopedic Surgery, Tonsillectomy, Tubal Ligation Additional Past Surgical History / Comment(s): c-sections x4, x2 rt knee lateral release sx, lt patella/lig sx Past Anesthesia/Blood Transfusion Reactions: No Reported Reaction Past Psychological History: No Psychological Hx Reported Smoking Status: Current every day smoker Past Alcohol Use History: None Reported Past Drug Use History: Heroin, IV Drug Use, Marijuana - Past Family History Mother Family Medical History: COPD Additional Family Medical History / Comment(s): emphysema, smoker Father Family Medical History: Coronary Artery Disease (CAD) Additional Family Medical History / Comment(s): triple bypas age 32, alcoholic, smoker General Exam Limitations: no limitations General appearance: alert, in no apparent distress Head exam: Present: atraumatic, normocephalic, normal inspection Eye exam: Present: normal appearance, PERRL, EOMI. Absent: scleral icterus Pupils: Present: normal accommodation ENT exam: Present: normal exam, normal oropharynx, mucous membranes moist, TM's normal bilaterally Neck exam: Present: normal inspection, full ROM. Absent: tenderness, lymphadenopathy Respiratory exam: Present: normal lung sounds bilaterally Cardiovascular Exam: Present: regular rate, normal rhythm, normal heart sounds GI/Abdominal exam: Present: soft, normal bowel sounds. Absent: distended, tenderness, guarding, rebound External exam: Present: normal external exam. Absent: erythema, swelling, lacerations, ecchymosis Speculum exam: Present: vaginal discharge (Weight is greatly). Absent: vaginal bleeding, foreign body By manual exam: Present: normal by manual exam Left Shoulder Exam: Present: normal inspection, full ROM Upper Arm exam: Present: normal inspection, full ROM Elbow exam: Present: normal inspection, full ROM Forearm Wrist exam: Present: normal inspection, full ROM Hand Wrist exam: Present: tenderness (With palpation), swelling (Mild), erythema (Mild). Absent: laceration, ecchymosis, crepitus Vascular: Present: normal capillary refill, radial pulse (+2), ulnar pulse (+2) Back exam: Present: normal inspection, full ROM. Absent: tenderness, CVA tenderness (R), CVA tenderness (L) Neurological exam: Present: alert, oriented X3 Psychiatric exam: Present: normal affect, normal mood Skin exam: Present: warm, intact, normal color Course Vital Signs 09/13/18 09:58 Temperature 98.3 F Pulse Rate 76 Respiratory 18 Rate Blood Pressure 135/86 O2 Sat by Pulse 98 Oximetry Medical Decision Making - Medical Decision Making Patient is a 33-year-old female presents emergency Department with erythema on the left hand, vaginal and urinary symptoms. Patient will be treated prophylactically for gonorrhea and chlamydia with 1 dose of Rocephin and azithromycin. Based on physical examination I suspect the patient to have bacterial vaginosis and will be treated with a 7 day course of Flagyl. The redness erythema on the hand appears to early abscess formation or cellulitis which will be treated with Bactrim and keflex. The UTI will also be treated with Bactrim. Patient advised to follow-up with primary care. Patient advised not to drink alcohol while taking Flagyl. Chest x-ray is negative for acute cardio pulmonary pathology. After physical examination and x-ray patient decided to leave AGAINST MEDICAL ADVICE because she had police at her home. Patient was coherent and fully understood the possible consequences of leaving AMA. Bactrim and Flagyl will be sent to her pharmacy electronically. I counseled the patient for smoking cessation for greater than 3 minutes. Patient advised to return to emergency department if symptoms worsen. Case discussed physician. Disposition Clinical Impression: UTI (urinary tract infection), Bacterial vaginosis Disposition: Left Against Medical Advice Condition: Stable Additional Instructions: Please take prescribed medication as directed. Please follow up with primary care. Please return to emergency department if symptoms worsen. Prescriptions: metroNIDAZOLE [Flagyl] 500 mg PO BID #14 tab Is patient prescribed a controlled substance at d/c from ED?: No Referrals: None,Stated [Primary Care Provider] - 1-2 days Time of Disposition: 10:52
[2018-09-13 11:00] LABS: Appearance,Urine Cloudy (Clear); Bilirubin,Urine Negative (Negative); Blood,Urine Negative (Negative); Color,Urine Yellow; Glucose,Urine (UA) Negative (Negative); Ketones,Urine Negative (Negative); Leukocyte Esterase,Urine Large (Negative); Mucus,Urine Few /hpf; Nitrite,Urine Negative (Negative); PH, Urine 5.5 (5.0-8.0); Protein,Urine Trace (Negative); RBC,Urine 5 /hpf (0-5); Specific Gravity,Urine 1.021 (1.001-1.035); Squamous Epithelial Cell,Urine 9 /hpf (0-4); Urobilinogen,Urine <2.0 mg/dL (<2.0); WBC,Urine 19 /hpf (0-5)
[2018-09-15 13:39] LABS: N. gonorrhoeae,PCR Negative (Neg,Equiv); Neisseria Source Cervix
[2018-09-15 13:46] LABS: C. trachomatis,PCR Negative (Neg,Equiv); Chlamydia trachomatis Source Cervix
== END 2018-09-13 11:02 | disposition left against medical advice (07) ==
LOC: EC 09:51
DX: N39.0 Urinary tract infection, site not specified (principal); N76.0 Acute vaginitis; R05 Cough; M79.642 Pain in left hand; M19.90 Unspecified osteoarthritis, unspecified site; J45.909 Unspecified asthma, uncomplicated; F17.200 Nicotine dependence, unspecified, uncomplicated; Z86.14 Personal history of Methicillin resistant Staphylococcus aureus infection; Z88.5 Allergy status to narcotic agent
CPT/HCPCS: 81001; 81025; 87491; 87591; 71046; 99284; 96372; J0696

== ENCOUNTER 2018-10-20 15:48 | Emergency (ER) | payer OTHER ==
--- NOTE | 2018-10-20 17:48 | US ---
EXAMINATION TYPE: US venous doppler duplex UE RT DATE OF EXAM: 10/20/2018 COMPARISON: NONE CLINICAL HISTORY: Pain. Edema, pain, redness right antecubital fossa. Patient injects drugs at this s ite SIDE PERFORMED: right Right Arm: No evidence of DVT as visualized. Superficial thrombus noted within right cephalic vein IMPRESSION: No evidence of deep venous thrombosis in the right arm. There is superficial thrombus in the cephalic vein.
[2018-10-20] MEDS ORDERED: SULFAMETHOX-TMP 800-160MG 1 EACH TAB PO STA (18:28)
--- NOTE | 2018-10-20 19:59 | ED ---
General Adult HPI - General Chief complaint: Skin/Abscess/Foreign Body Stated complaint: Abscess Source: patient Mode of arrival: ambulatory Limitations: no limitations - History of Present Illness Initial comments: Patient is a 33-year-old female presents emergency Department with swelling of the right arm. Patient reports she is an active IV drug user and used heroin prior to coming to the emergency department. Patient is a poor historian. Patient was able to show me the right arm where the swelling occurred. Patient reports swelling in the right antecubital region that initially started 3 days ago and is slowly progress in severity. Patient reports tenderness on palpation. Patient reports full range of motion. Patient denies taking any medication to alleviate the symptoms. - Related Data Home Medications Medication Instructions Recorded Confirmed Albuterol Inhaler [Ventolin Hfa 1 - 2 puff INHALATION Q6HR PRN 07/29/17 07/29/17 Inhaler] Previous Rx's Medication Instructions Recorded Albuterol Nebulized [Ventolin 2.5 mg INHALATION Q4H PRN #25 nebu 07/29/17 Nebulized] Albuterol Sulfate [Proair Hfa] 1 - 2 puff INHALATION Q4H PRN #1 07/29/17 inhaler Benzonatate [Tessalon Perles] 100 mg PO TID PRN #15 capsule 07/29/17 Naproxen [Naprosyn] 500 mg PO Q12HR PRN #30 tab 07/29/17 predniSONE 50 mg PO DAILY #5 tab 07/29/17 Cephalexin [Keflex] 500 mg PO Q6HR #40 cap 09/13/18 Sulfamethox-Tmp 800-160Mg [Bactrim 1 each PO Q12HR #20 tab 09/13/18 Ds] metroNIDAZOLE [Flagyl] 500 mg PO BID #14 tab 09/13/18 Sulfamethox-Tmp 800-160Mg [Bactrim 1 each PO Q12HR #20 tab 10/20/18 Ds] Allergies Allergy/AdvReac Type Severity Reaction Status Date / Time morphine Allergy Dyspnea Verified 10/20/18 16:25 Review of Systems ROS Statement: Those systems with pertinent positive or pertinent negative responses have been documented in the HPI. ROS Other: All systems not noted in ROS Statement are negative. Past Medical History Past Medical History: Asthma, Liver Disease, Osteoarthritis (OA) Additional Past Medical History / Comment(s): KNEE PAIN, MIGRAINES/ back pain,current IVDA, hep c(no tx yet),shingles 2008 History of Any Multi-Drug Resistant Organisms: MRSA Date of last positivie culture/infection: 10/23/2013 MDRO Source:: rt Buttock Past Surgical History: Adenoidectomy, Section, Orthopedic Surgery, Tonsillectomy, Tubal Ligation Additional Past Surgical History / Comment(s): c-sections x4, x2 rt knee lateral release sx, lt patella/lig sx Past Anesthesia/Blood Transfusion Reactions: No Reported Reaction Past Psychological History: No Psychological Hx Reported Smoking Status: Current every day smoker Past Alcohol Use History: None Reported Past Drug Use History: Heroin, IV Drug Use, Marijuana, Methamphetamine - Past Family History Mother Family Medical History: COPD Additional Family Medical History / Comment(s): emphysema, smoker Father Family Medical History: Coronary Artery Disease (CAD) Additional Family Medical History / Comment(s): triple bypas age 32, alcoholic, smoker General Exam Limitations: no limitations General appearance: alert, in no apparent distress, other (Patient appears to be under the influence of heroin.) Head exam: Present: atraumatic, normocephalic, normal inspection Eye exam: Absent: PERRL (Poor pupillary response to light), EOMI Pupils: Present: miosis ENT exam: Present: mucous membranes moist, normal external ear exam Neck exam: Present: normal inspection Respiratory exam: Present: normal lung sounds bilaterally Cardiovascular Exam: Present: regular rate, normal rhythm, normal heart sounds Extremities exam: Present: tenderness (Tenderness in the right antecubital region. No fluctuance or induration), normal capillary refill, other (+2 radial and ulnar pulses). Absent: normal inspection (Edema in the right antecubital region with surrounding tissue erythema but no skin discoloration. Multiple healing injection sites.), full ROM (Limited range of motion due to pain) Back exam: Present: normal inspection, full ROM Neurological exam: Present: altered (Patient appears to be under the influence of heroin.) Psychiatric exam: Present: normal affect, normal mood Skin exam: Present: warm, intact, normal color, other (Patient has multiple injection sites on the upper or lower tremors.) Course Vital Signs 10/20/18 10/20/18 16:23 20:18 Temperature 98.5 F 98.2 F Pulse Rate 83 81 Respiratory 16 18 Rate Blood Pressure 110/72 113/63 O2 Sat by Pulse 100 99 Oximetry Medical Decision Making - Medical Decision Making Patient is a 33-year-old female presents emergency Department with right hand swelling. Ultrasound of the right upper extremity is indicative of a superficial venous thrombus. This appears to be the reason causing the swelling. The underlying edema and tenderness with palpation could be indicative of a possible infection. Considering the fact that the patient is an IVD on going to treat the patient with antibiotics. A single dose of Bactrim was given while in the EC. Patient will be discharged with a 10 day course of antibiotics. On reevaluation patient appears to be completely sober and is able to comprehend all my structures. Patient advised to take prescribed medication as directed. Drug rehab options at local facilities were discussed with patient. Patient was able to comply that she is fully understanding of everything discussed. Strict return parameters were thoroughly discussed with patient was understanding and agreeable. Dr. Walsh also examined the patient and is in agreement with the treatment plan. Case discussed with physician. Disposition Clinical Impression: Superficial venous thrombosis of arm Disposition: HOME SELF-CARE Condition: Stable Instructions (If sedation given, give patient instructions): Superficial Thrombophlebitis (ED) Additional Instructions: Please take prescribed medication as directed. Please use information provided for drug rehab. Please follow with primary care. Please return to emergency department if symptoms worsen. Prescriptions: Sulfamethox-Tmp 800-160Mg [Bactrim Ds] 1 each PO Q12HR #20 tab Is patient prescribed a controlled substance at d/c from ED?: No Referrals: None,Stated [Primary Care Provider] - 1-2 days Time of Disposition: 19:59
[2018-10-20 20:19] VITALS: BP 113/63; PULSE 81; RESP 18; TEMP 98.2
== END 2018-10-20 20:20 | disposition home or self-care (01) ==
LOC: EC 15:48
DX: I82.611 Acute embolism and thrombosis of superficial veins of right upper extremity (principal); H57.03 Miosis; J45.909 Unspecified asthma, uncomplicated; F11.90 Opioid use, unspecified, uncomplicated; F19.90 Other psychoactive substance use, unspecified, uncomplicated; Z88.5 Allergy status to narcotic agent; Z86.14 Personal history of Methicillin resistant Staphylococcus aureus infection
CPT/HCPCS: 99283

== ENCOUNTER 2018-11-19 | Emergency (ER) | payer OTHER ==
--- NOTE | 2018-11-19 21:09 | ED ---
Skin/Abscess/FB HPI - General Chief complaint: Skin/Abscess/Foreign Body Stated complaint: Possible abcess on arms Time Seen by Provider: 11/19/18 20:44 Source: patient Mode of arrival: ambulatory Limitations: no limitations - History of Present Illness Initial comments: Patient is a 33-year-old female presenting to the emergency department with complaints of a possible skin infection secondary to IV drug use. Patient is concerned she may have a blood clot or skin infection. Patient admits to being an IV drug user. Patient states she has had skin infections in the past. Patient denies any fever, chills, nausea, vomiting. Upon arrival to ER, vital signs show slightly tachycardia at 102, afebrile. Patient has no other complaints at this time. - Related Data Home Medications Medication Instructions Recorded Confirmed Albuterol Inhaler [Ventolin Hfa 1 - 2 puff INHALATION Q6HR PRN 07/29/17 07/29/17 Inhaler] Previous Rx's Medication Instructions Recorded Albuterol Nebulized [Ventolin 2.5 mg INHALATION Q4H PRN #25 nebu 07/29/17 Nebulized] Albuterol Sulfate [Proair Hfa] 1 - 2 puff INHALATION Q4H PRN #1 07/29/17 inhaler Benzonatate [Tessalon Perles] 100 mg PO TID PRN #15 capsule 07/29/17 Naproxen [Naprosyn] 500 mg PO Q12HR PRN #30 tab 07/29/17 predniSONE 50 mg PO DAILY #5 tab 07/29/17 Cephalexin [Keflex] 500 mg PO Q6HR #40 cap 09/13/18 Sulfamethox-Tmp 800-160Mg [Bactrim 1 each PO Q12HR #20 tab 09/13/18 Ds] metroNIDAZOLE [Flagyl] 500 mg PO BID #14 tab 09/13/18 Sulfamethox-Tmp 800-160Mg [Bactrim 1 each PO Q12HR #20 tab 10/20/18 Ds] Sulfamethox-Tmp 800-160Mg [Bactrim 1 each PO Q12HR 10 Days #20 tab 11/19/18 Ds] Allergies Allergy/AdvReac Type Severity Reaction Status Date / Time morphine Allergy Dyspnea Verified 11/19/18 20:21 Review of Systems ROS Statement: Those systems with pertinent positive or pertinent negative responses have been documented in the HPI. ROS Other: All systems not noted in ROS Statement are negative. Past Medical History Past Medical History: Asthma, Liver Disease, Osteoarthritis (OA) Additional Past Medical History / Comment(s): KNEE PAIN, MIGRAINES/ back pain,current IVDA, hep c(no tx yet),shingles 2008 History of Any Multi-Drug Resistant Organisms: MRSA Date of last positivie culture/infection: 10/23/2013 MDRO Source:: rt Buttock Past Surgical History: Adenoidectomy, Section, Orthopedic Surgery, Tonsillectomy, Tubal Ligation Additional Past Surgical History / Comment(s): c-sections x4, x2 rt knee lateral release sx, lt patella/lig sx Past Anesthesia/Blood Transfusion Reactions: No Reported Reaction Past Psychological History: No Psychological Hx Reported Smoking Status: Current every day smoker Past Alcohol Use History: None Reported Past Drug Use History: Heroin, IV Drug Use, Marijuana, Methamphetamine - Past Family History Mother Family Medical History: COPD Additional Family Medical History / Comment(s): emphysema, smoker Father Family Medical History: Coronary Artery Disease (CAD) Additional Family Medical History / Comment(s): triple bypas age 32, alcoholic, smoker General Exam - General Exam Comments Initial Comments: GENERAL: Disheveled appearance, very anxious and nervous. Limited eye contact. HEAD: Atraumatic, normocephalic. EYES: Pupils equal round and reactive to light, extraocular movements intact, sclera anicteric, conjunctiva are normal. ENT: TMs normal, nares patent, oropharynx clear without exudates. Moist mucous membranes. NECK: Normal range of motion, supple without lymphadenopathy or JVD. LUNGS: Breath sounds clear to auscultation bilaterally and equal. No wheezes rales or rhonchi. HEART: Regular rate and rhythm without murmurs, rubs or gallops. ABDOMEN: Soft, nontender, normoactive bowel sounds. No guarding, no rebound. No masses appreciated. : Deferred EXTREMITIES: Normal range of motion, no pitting or edema. No clubbing or cyanosis. NEUROLOGICAL: Cranial nerves II through XII grossly intact. Normal speech, normal gait. PSYCH: Normal mood, normal affect. SKIN: Warm, Dry. Patient has multiple track klein sites on the bilateral arms, thighs, hands from IV drug use. There is an area on her left dorsal aspect of the hand that is red, swollen, painful to the touch, consistent with an early cellulitis. Limitations: no limitations Course Vital Signs 11/19/18 20:18 Temperature 98.5 F Pulse Rate 102 H Respiratory 20 Rate Blood Pressure 140/93 O2 Sat by Pulse 97 Oximetry Medical Decision Making - Medical Decision Making Patient is a 33-year-old female presenting with possible skin infection secondary to IV drug use. Patient admits to having multiple sites that she thinks is infected. On exam patient has multiple IV drug tracks klein on bilateral arms and hands as well as thighs. Patient does have one area on the left dorsal aspect of the hand that appears to be erythematous, swollen, painful to the touch. Patient will be placed on antibiotics for cellulitis. Return parameters were discussed with the patient she verbalized understanding. Patient was counseled on the dangers of IVD use. Patient is stable for discharge. Disposition Clinical Impression: Cellulitis of left hand, IVDU (intravenous drug user) Disposition: HOME SELF-CARE Condition: Stable Instructions (If sedation given, give patient instructions): Cellulitis (ED) Additional Instructions: Please return to the Emergency Department if symptoms worsen or any other concerns. Prescriptions: Sulfamethox-Tmp 800-160Mg [Bactrim Ds] 1 each PO Q12HR 10 Days #20 tab Is patient prescribed a controlled substance at d/c from ED?: No Referrals: None,Stated [Primary Care Provider] - 1-2 days
== END 2018-11-19 21:13 | disposition home or self-care (01) ==
CPT/HCPCS: 99282

== ENCOUNTER 2018-11-20 19:55 | Emergency (ER) | payer OTHER ==
[2018-11-20] MEDS ORDERED: IBUPROFEN 600 MG TAB PO STA (20:55)
--- NOTE | 2018-11-20 21:09 | ED ---
Extremity Problem HPI - General Chief complaint: Extremity Problem,Nontraumatic Stated complaint: Arm Pain, poss blood clot Time Seen by Provider: 11/20/18 20:11 Source: patient Mode of arrival: ambulatory Limitations: no limitations - History of Present Illness Initial comments: 33-year-old female patient presents to the emergency department today for e valuation of a painful lump to her left antecubital region. Patient states this is been present over the last 24-48 hours. States that she does inject heroin, she is unsure when she last injected to this area. Patient states that she did have a blood clot in her right arm in the past and is concerned she may have one on the side. States that she has had some sweats and chills intermittently. Denies any nausea or vomiting. Denies any drainage from the area. Denies any use of pain medication for symptom relief. Patient denies any recent rash, shortness breath, chest pain, abdominal pain, nausea, vomiting, diarrhea, constipation, back pain, numbness, tingling, dizziness, weakness, hematuria, dysuria, urinary urgency, urinary frequency, headache, visual changes, or any other complaints. - Related Data Home Medications Medication Instructions Recorded Confirmed Sulfamethox-Tmp 800-160Mg [Bactrim 1 tab PO Q12HR 11/20/18 11/20/18 Ds] Previous Rx's Medication Instructions Recorded Ibuprofen [Motrin] 600 mg PO Q8HR PRN #30 tab 11/20/18 Allergies Allergy/AdvReac Type Severity Reaction Status Date / Time morphine Allergy Dyspnea Verified 11/20/18 20:45 Review of Systems ROS Statement: Those systems with pertinent positive or pertinent negative responses have been documented in the HPI. ROS Other: All systems not noted in ROS Statement are negative. Past Medical History Past Medical History: Asthma, Liver Disease, Osteoarthritis (OA) Additional Past Medical History / Comment(s): KNEE PAIN, MIGRAINES/ back pain,current IVDA, hep c(no tx yet),shingles 2008 History of Any Multi-Drug Resistant Organisms: MRSA Date of last positivie culture/infection: 10/23/2013 MDRO Source:: rt Buttock Past Surgical History: Adenoidectomy, Section, Orthopedic Surgery, Tonsillectomy, Tubal Ligation Additional Past Surgical History / Comment(s): c-sections x4, x2 rt knee lateral release sx, lt patella/lig sx Past Anesthesia/Blood Transfusion Reactions: No Reported Reaction Past Psychological History: No Psychological Hx Reported Smoking Status: Current every day smoker Past Alcohol Use History: None Reported Past Drug Use History: Heroin, IV Drug Use, Marijuana, Methamphetamine - Past Family History Mother Family Medical History: COPD Additional Family Medical History / Comment(s): emphysema, smoker Father Family Medical History: Coronary Artery Disease (CAD) Additional Family Medical History / Comment(s): triple bypas age 32, alcoholic, smoker General Exam Limitations: no limitations General appearance: alert, in no apparent distress, other (This is a well- developed, well-nourished adult female patient in no acute distress. Vital signs upon presentation are temperature 98.2F, pulse 79, respirations 17, blood pressure 153/108, pulse ox 100% on room air.) Eye exam: Present: normal appearance, PERRL, EOMI. Absent: scleral icterus, conjunctival injection, periorbital swelling Respiratory exam: Present: normal lung sounds bilaterally. Absent: respiratory distress, wheezes, rales, rhonchi, stridor Cardiovascular Exam: Present: regular rate, normal rhythm, normal heart sounds. Absent: systolic murmur, diastolic murmur, rubs, gallop, clicks Extremities exam: Present: full ROM, normal capillary refill, other (Multiple track klein bilateral arms. There is elongated area of ecchymosis to the right volar forearm. There is a). Absent: normal inspection, tenderness, pedal edema, joint swelling, calf tenderness Course Vital Signs 11/20/18 11/20/18 19:56 22:56 Temperature 98.2 F 98.0 F Pulse Rate 79 81 Respiratory 17 16 Rate Blood Pressure 153/108 150/78 O2 Sat by Pulse 100 98 Oximetry Medical Decision Making - Medical Decision Making 33-year-old female patient presents to the emergency department today for evaluation of hard lump in the left antecubital fossa. There is no erythema or warmth to the area. Patient admits to injecting heroin to the area. Ultrasound venous Doppler duplex of the left arm was obtained and was negative for DVT. Local ultrasound was performed and did show evidence for superficial thrombophlebitis. Patient was educated regarding use of anti-inflammatories and warm compresses the edges instructed to follow-up with her primary care physician for recheck in 1-2 days. Return parameters were discussed in detail. She verbalizes understanding and agrees with this plan. - Radiology Data Radiology results: report reviewed Ultrasound of the left antecubital fossa was obtained. Report is reviewed in its entirety. Impression by Dr. Small shows superficial thrombophlebitis at the antecubital fossa. Ultrasound venous Doppler duplex of the left upper extremity was performed. Report was reviewed in its entirety. Impression by Dr. Small shows no evidence of deep venous thrombosis in the left upper extremities. Disposition Clinical Impression: Superficial thrombophlebitis of left upper extremity Disposition: HOME SELF-CARE Condition: Good Instructions (If sedation given, give patient instructions): Superficial Thrombophlebitis (ED) Additional Instructions: Apply warm compresses. Take medication as needed for pain control. Follow-up through primary care physician for recheck in 1-2 days. Return to the emergency department immediately for any new, worsening, or concerning symptoms. Prescriptions: Ibuprofen [Motrin] 600 mg PO Q8HR PRN #30 tab PRN Reason: Pain Is patient prescribed a controlled substance at d/c from ED?: No Referrals: None,Stated [Primary Care Provider] - 1-2 days Time of Disposition: 22:51
--- NOTE | 2018-11-20 22:37 | US ---
US VENOUS, LEFT UPPER EXTREMITY HISTORY: Pain COMPARISON: None TECHNIQUE: Duplex Doppler evaluation of the venous systems of the left lower neck and left upper extremity is performed using grayscale, color flow, and spectral Doppler ultrasound. FINDINGS: The left internal jugular, subclavian, axillary, brachial, basilic and cephalic veins demonstrate appropriate compressibility and waveform pulsatility, appearing patent on color Doppler evaluation. The imaged portions of the radial and ulnar veins appear patent. There is no evidence of acute DVT. IMPRESSION: No evidence of deep venous thrombus in the left upper extremity.
--- NOTE | 2018-11-20 22:37 | US ---
INDICATION: Pain TECHNIQUE: Real-time imaging of the soft tissues of left arm at the antecubital fossa is performed in transverse and longitudinal projections using grayscale and color flow techniques. COMPARISON: None FINDINGS: There is a tubular hypoechoic avascular structure in the soft tissues at the antecubital fossa suggesting a thrombosed superficial vein. IMPRESSION: Superficial thrombophlebitis at the antecubital fossa.
[2018-11-20 22:56] VITALS: BP 150/78; PULSE 81; RESP 16; TEMP 98
== END 2018-11-20 22:56 | disposition home or self-care (01) ==
LOC: EC 19:55
DX: I80.8 Phlebitis and thrombophlebitis of other sites (principal); R68.83 Chills (without fever); F17.200 Nicotine dependence, unspecified, uncomplicated; Z86.14 Personal history of Methicillin resistant Staphylococcus aureus infection; Z88.5 Allergy status to narcotic agent
CPT/HCPCS: 99283

== ENCOUNTER 2018-11-27 23:29 | Emergency (ER) | payer OTHER ==
[2018-11-28] MEDS ORDERED: SODIUM CHLORIDE 0.9% 1,000 ML IV STA ×2 (02:12)
[2018-11-28] MEDS ORDERED: ACETAMINOPHEN TAB 500 MG TAB PO STA (02:12)
--- NOTE | 2018-11-28 02:37 | XR ---
EXAM: XR Chest, 2 Views CLINICAL HISTORY: ITS.REASON XR Reason: Pain TECHNIQUE: Frontal and lateral views of the chest. COMPARISON: 09/13/18 FINDINGS: Lungs: No consolidation or mass. Pleural space: No effusion. Heart: No cardiomegaly. Mediastinum: Unremarkable. Bones/joints: No acute findings. IMPRESSION: No acute cardiopulmonary process.
[2018-11-28 03:04] LABS: Anisocytosis Slight; Appearance,Urine Cloudy (Clear); Basophils # (A) 0.1 k/uL (0-0.2); Basophils % (A) 1 %; Bilirubin,Urine Negative (Negative); Blood,Urine Negative (Negative); Calcium Oxalate Crystals,Urine Few /hpf; Color,Urine Yellow; Eosinophils # (A) 0.5 k/uL (0-0.7); Eosinophils % (A) 4 %; Glucose,Urine (UA) Negative (Negative); HCT 46.9 % (34.0-46.0); HGB 14.5 gm/dL (11.4-16.0); Hypochromasia Slight; Ketones,Urine Trace (Negative); Leukocyte Esterase,Urine Negative (Negative); Lymphocytes # (A) 2.9 k/uL (1.0-4.8); Lymphocytes % (A) 25 %; MCH 25.6 pg (25.0-35.0); MCV 82.8 fL (80.0-100.0); Monocytes # (A) 0.4 k/uL (0-1.0); Monocytes % (A) 4 %; Mucus,Urine Few /hpf; Neutrophils # (A) 7.4 k/uL (1.3-7.7); Neutrophils % (A) 64 %; Nitrite,Urine Negative (Negative); PH, Urine 5.5 (5.0-8.0); Platelet Count 239 k/uL (150-450); Protein,Urine Trace (Negative); RBC 5.66 m/uL (3.80-5.40); RBC,Urine <1 /hpf (0-5); RDW 16.1 % (11.5-15.5); Specific Gravity,Urine 1.035 (1.001-1.035); Squamous Epithelial Cell,Urine 3 /hpf (0-4); WBC 11.6 k/uL (3.8-10.6); WBC,Urine 3 /hpf (0-5)
--- NOTE | 2018-11-28 03:11 | ED ---
Fever HPI - General Chief Complaint: Fever Stated Complaint: URI Time Seen by Provider: 11/28/18 01:54 Source: patient, RN notes reviewed, old records reviewed Mode of arrival: ambulatory Limitations: no limitations - History of Present Illness Initial Comments: Patient is a 33 year old female, presents today for concern for fevers. She reports history of IVDU, and going to rehab on Sunday. She reprots she has been treatmed for injection site celluitis and is finishing bactrim at this time. She states that she has had fatigue and occasional chills, denies chest pain. She denies any other physical pain at this time. she last used heroin before coming into ED. - Related Data Home Medications Medication Instructions Recorded Confirmed Sulfamethox-Tmp 800-160Mg [Bactrim 1 tab PO Q12HR 11/20/18 11/20/18 Ds] Previous Rx's Medication Instructions Recorded Ibuprofen [Motrin] 600 mg PO Q8HR PRN #30 tab 11/20/18 Allergies Allergy/AdvReac Type Severity Reaction Status Date / Time morphine Allergy Dyspnea Verified 11/27/18 23:43 Review of Systems ROS Statement: Those systems with pertinent positive or pertinent negative responses have been documented in the HPI. ROS Other: All systems not noted in ROS Statement are negative. Past Medical History Past Medical History: Asthma, Liver Disease, Osteoarthritis (OA) Additional Past Medical History / Comment(s): KNEE PAIN, MIGRAINES/ back pain,current IVDA, hep c(no tx yet),shingles 2008 History of Any Multi-Drug Resistant Organisms: MRSA Date of last positivie culture/infection: 10/23/2013 MDRO Source:: rt Buttock Past Surgical History: Adenoidectomy, Section, Orthopedic Surgery, Tonsillectomy, Tubal Ligation Additional Past Surgical History / Comment(s): c-sections x4, x2 rt knee lateral release sx, lt patella/lig sx Past Anesthesia/Blood Transfusion Reactions: No Reported Reaction Past Psychological History: No Psychological Hx Reported Smoking Status: Current every day smoker Past Alcohol Use History: None Reported Past Drug Use History: Heroin, IV Drug Use, Marijuana, Methamphetamine - Past Family History Mother Family Medical History: COPD Additional Family Medical History / Comment(s): emphysema, smoker Father Family Medical History: Coronary Artery Disease (CAD) Additional Family Medical History / Comment(s): triple bypas age 32, alcoholic, smoker General Exam - General Exam Comments Initial Comments: 33 year old female, no distress. Limitations: no limitations General appearance: alert, in no apparent distress Head exam: Present: atraumatic, normocephalic, normal inspection Eye exam: Present: normal appearance, PERRL, EOMI. Absent: scleral icterus, conjunctival injection, periorbital swelling ENT exam: Present: normal exam, mucous membranes moist Neck exam: Present: normal inspection. Absent: tenderness, meningismus, lymphadenopathy Respiratory exam: Present: normal lung sounds bilaterally. Absent: respiratory distress, wheezes, rales, rhonchi, stridor Cardiovascular Exam: Present: regular rate, normal rhythm, normal heart sounds. Absent: systolic murmur, diastolic murmur, rubs, gallop, clicks GI/Abdominal exam: Present: soft, normal bowel sounds. Absent: distended, tenderness, guarding, rebound, rigid Extremities exam: Present: normal inspection, full ROM, normal capillary refill, other (track klein on arms bilaterally and legs. No erythema. No nodules or lesions on hands or feet. ). Absent: tenderness, pedal edema, joint swelling, calf tenderness Back exam: Present: normal inspection Neurological exam: Present: alert, oriented X3, CN II-XII intact Psychiatric exam: Present: normal affect, normal mood Course Vital Signs 11/27/18 11/28/18 23:40 04:01 Temperature 98.6 F 98.0 F Pulse Rate 100 87 Respiratory 18 20 Rate Blood Pressure 147/104 134/79 O2 Sat by Pulse 100 98 Oximetry Medical Decision Making - Medical Decision Making 33 year old female concern for fatigue and fevers, history of IVDU. No physcial complaints. She has no skin lesions, and otherwise appears. well Labs and CXR are normal Blood culture completed. No murmur or physcial exam findigns for endocarditis thoughts. No fever in ED. Discussed waiting cultures and she is already taking bactrim for hadn cellulitis earlier this week. Return parameters discussed. - Lab Data Result diagrams: 11/28/18 02:45 11/28/18 02:45 Lab Results 11/28/18 11/28/18 11/28/18 Range/Units 02:45 02:45 02:45 WBC 11.6 H (3.8-10.6) k/uL RBC 5.66 H (3.80-5.40) m/uL Hgb 14.5 (11.4-16.0) gm/dL Hct 46.9 H (34.0-46.0) % MCV 82.8 (80.0-100.0) fL MCH 25.6 (25.0-35.0) pg MCHC 31.0 (31.0-37.0) g/dL RDW 16.1 H (11.5-15.5) % Plt Count 239 (150-450) k/uL Neutrophils % 64 % Lymphocytes % 25 % Monocytes % 4 % Eosinophils % 4 % Basophils % 1 % Neutrophils # 7.4 (1.3-7.7) k/uL Lymphocytes # 2.9 (1.0-4.8) k/uL Monocytes # 0.4 (0-1.0) k/uL Eosinophils # 0.5 (0-0.7) k/uL Basophils # 0.1 (0-0.2) k/uL Hypochromasia Slight Anisocytosis Slight Sodium 141 (137-145) mmol/L Potassium 4.0 (3.5-5.1) mmol/L Chloride 103 (98-107) mmol/L Carbon Dioxide 28 (22-30) mmol/L Anion Gap 10 mmol/L BUN 15 (7-17) mg/dL Creatinine 0.74 (0.52-1.04) mg/dL Est GFR (CKD-EPI)AfAm >90 (>60 ml/min/1.73 sqM) Est GFR (CKD-EPI)NonAf >90 (>60 ml/min/1.73 sqM) Glucose 86 (74-99) mg/dL Plasma Lactic Acid Wagner 0.7 (0.7-2.0) mmol/L Calcium 9.6 (8.4-10.2) mg/dL Total Bilirubin 0.3 (0.2-1.3) mg/dL AST 37 H (14-36) U/L ALT 42 (9-52) U/L Alkaline Phosphatase 121 (38-126) U/L Total Protein 8.8 H (6.3-8.2) g/dL Albumin 4.5 (3.5-5.0) g/dL Urine Color Urine Appearance (Clear) Urine pH (5.0-8.0) Ur Specific [place] (1.001-1.035) Urine Protein (Negative) Urine Glucose (UA) (Negative) Urine Ketones (Negative) Urine Blood (Negative) Urine Nitrite (Negative) Urine Bilirubin (Negative) Urine Urobilinogen (<2.0) mg/dL Ur Leukocyte Esterase (Negative) Urine RBC (0-5) /hpf Urine WBC (0-5) /hpf Ur Squamous Epith Cells (0-4) /hpf Calcium Oxalate Crystal (None) /hpf Urine Mucus (None) /hpf 11/28/18 Range/Units 02:45 WBC (3.8-10.6) k/uL RBC (3.80-5.40) m/uL Hgb (11.4-16.0) gm/dL Hct (34.0-46.0) % MCV (80.0-100.0) fL MCH (25.0-35.0) pg MCHC (31.0-37.0) g/dL RDW (11.5-15.5) % Plt Count (150-450) k/uL Neutrophils % % Lymphocytes % % Monocytes % % Eosinophils % % Basophils % % Neutrophils # (1.3-7.7) k/uL Lymphocytes # (1.0-4.8) k/uL Monocytes # (0-1.0) k/uL Eosinophils # (0-0.7) k/uL Basophils # (0-0.2) k/uL Hypochromasia Anisocytosis Sodium (137-145) mmol/L Potassium (3.5-5.1) mmol/L Chloride (98-107) mmol/L Carbon Dioxide (22-30) mmol/L Anion Gap mmol/L BUN (7-17) mg/dL Creatinine (0.52-1.04) mg/dL Est GFR (CKD-EPI)AfAm (>60 ml/min/1.73 sqM) Est GFR (CKD-EPI)NonAf (>60 ml/min/1.73 sqM) Glucose (74-99) mg/dL Plasma Lactic Acid Wagner (0.7-2.0) mmol/L Calcium (8.4-10.2) mg/dL Total Bilirubin (0.2-1.3) mg/dL AST (14-36) U/L ALT (9-52) U/L Alkaline Phosphatase (38-126) U/L Total Protein (6.3-8.2) g/dL Albumin (3.5-5.0) g/dL Urine Color Yellow Urine Appearance Cloudy H (Clear) Urine pH 5.5 (5.0-8.0) Ur Specific [place] 1.035 (1.001-1.035) Urine Protein Trace H (Negative) Urine Glucose (UA) Negative (Negative) Urine Ketones Trace H (Negative) Urine Blood Negative (Negative) Urine Nitrite Negative (Negative) Urine Bilirubin Negative (Negative) Urine Urobilinogen 3.0 (<2.0) mg/dL Ur Leukocyte Esterase Negative (Negative) Urine RBC <1 (0-5) /hpf Urine WBC 3 (0-5) /hpf Ur Squamous Epith Cells 3 (0-4) /hpf Calcium Oxalate Crystal Few H (None) /hpf Urine Mucus Few H (None) /hpf - Radiology Data Radiology results: report reviewed Normal CXR, negative for acute disease process. Disposition Clinical Impression: History of fever, Superficial thrombophlebitis Disposition: HOME SELF-CARE Condition: Good Instructions (If sedation given, give patient instructions): Fever in Adults (ED) Additional Instructions: Continue your antibiotics as prescribed. Patient advised to return to the emergency department if any alarming signs or symptoms occur. Go to Rehab as discussed. Is patient prescribed a controlled substance at d/c from ED?: No Referrals: None,Stated [Primary Care Provider] - 1-2 days Time of Disposition: 04:02
[2018-11-28 03:16] LABS: ALT 42 U/L (9-52); AST 37 U/L (14-36); African American GFR (CKD) >90 (>60 ml/min/1.73 sqM); Albumin 4.5 g/dL (3.5-5.0); Alkaline Phosphatase 121 U/L (38-126); Anion Gap 10 mmol/L; Blood Urea Nitrogen 15 mg/dL (7-17); Calcium 9.6 mg/dL (8.4-10.2); Carbon Dioxide 28 mmol/L (22-30); Chloride 103 mmol/L (98-107); Glucose 86 mg/dL (74-99); Sodium 141 mmol/L (137-145); Total Bilirubin 0.3 mg/dL (0.2-1.3); Total Protein 8.8 g/dL (6.3-8.2)
[2018-11-28 04:02] VITALS: BP 134/79; PULSE 87; RESP 20; TEMP 98
== END 2018-11-28 04:07 | disposition home or self-care (01) ==
LOC: EC 23:29
DX: I80.9 Phlebitis and thrombophlebitis of unspecified site (principal); L03.90 Cellulitis, unspecified; R53.83 Other fatigue; Z86.59 Personal history of other mental and behavioral disorders; Z88.5 Allergy status to narcotic agent; F17.200 Nicotine dependence, unspecified, uncomplicated; Z86.14 Personal history of Methicillin resistant Staphylococcus aureus infection
CPT/HCPCS: 36415; 71046; 80053; 81001; 83605; 85025; 87040; 87086; 96360; 99284

== ENCOUNTER 2018-12-19 20:21 | Emergency (ER) | payer OTHER ==
[2018-12-19 20:33] VITALS: BP 140/93; PULSE 98; RESP 17; TEMP 98.4
--- NOTE | 2018-12-19 22:01 | US ---
EXAMINATION TYPE: US extremity nonvasc mass RT DATE OF EXAM: 12/19/2018 COMPARISON: US CLINICAL HISTORY: poss svt. idv. Palpable lump x 3 days. Pain. Hx SVT. Drug user. Scanned area of concern right medial thigh. Superficial noncompressible vessel visualized with internal echoes. Minimal flow is seen in portions of vessel. IMPRESSION: No discrete solid or cystic masses identified. 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
[2018-12-19] MEDS ORDERED: SULFAMETH-TMP DS STARTER PACK 2 TAB BTL PO STA (22:08)
--- NOTE | 2018-12-19 22:36 | ED ---
General Adult HPI - General Chief complaint: Skin/Abscess/Foreign Body Stated complaint: Possible blood clot Time Seen by Provider: 12/19/18 20:35 Source: patient Mode of arrival: ambulatory Limitations: no limitations - History of Present Illness Initial comments: Patient is a 33-year-old IV drug user presenting to the emergency department with a chief complaint of infection at the injection site. Patient reports she has been injecting heroin for long periods of time. Patient reports she has difficulty time finding accessible veins. Patient reports she attempted to inject in the medial aspect of her right thigh. Patient reports she did 2 days ago when she missed and a mild hematoma was formed. Patient reports she developed erythema in the region. Patient reports today she reattempted to inject in the same side and missed again. Patient reports the region of erythema is slightly increasing in size and is tender. Patient denies any fe vers or chills. Patient denies taking medication to alleviate the symptoms. - Related Data Home Medications Medication Instructions Recorded Confirmed Sulfamethox-Tmp 800-160Mg [Bactrim 1 tab PO Q12HR 11/20/18 12/19/18 Ds] Albuterol Inhaler [Ventolin Hfa 1 - 2 puff INHALATION RT-Q6H PRN 12/19/18 12/19/18 Inhaler] Previous Rx's Medication Instructions Recorded Sulfamethox-Tmp 800-160Mg [Bactrim 1 each PO Q12HR #20 tab 12/19/18 Ds] Allergies Allergy/AdvReac Type Severity Reaction Status Date / Time morphine Allergy Dyspnea Verified 12/19/18 20:55 Review of Systems ROS Statement: Those systems with pertinent positive or pertinent negative responses have been documented in the HPI. ROS Other: All systems not noted in ROS Statement are negative. Past Medical History Past Medical History: Asthma, Liver Disease, Osteoarthritis (OA) Additional Past Medical History / Comment(s): KNEE PAIN, MIGRAINES/ back pain,current IVDA, hep c(no tx yet),shingles 2008 History of Any Multi-Drug Resistant Organisms: MRSA Date of last positivie culture/infection: 10/23/2013 MDRO Source:: rt Buttock Past Surgical History: Adenoidectomy, Section, Orthopedic Surgery, Tonsillectomy, Tubal Ligation Additional Past Surgical History / Comment(s): c-sections x4, x2 rt knee lateral release sx, lt patella/lig sx Past Anesthesia/Blood Transfusion Reactions: No Reported Reaction Past Psychological History: No Psychological Hx Reported Smoking Status: Current every day smoker Past Alcohol Use History: None Reported Past Drug Use History: Cocaine, Heroin, IV Drug Use, Marijuana, Methamphetamine - Past Family History Mother Family Medical History: COPD Additional Family Medical History / Comment(s): emphysema, smoker Father Family Medical History: Coronary Artery Disease (CAD) Additional Family Medical History / Comment(s): triple bypas age 32, alcoholic, smoker General Exam Limitations: no limitations General appearance: alert, in no apparent distress Head exam: Present: atraumatic, normocephalic, normal inspection Eye exam: Present: normal appearance, PERRL, EOMI Pupils: Present: normal accommodation ENT exam: Present: normal exam, normal oropharynx, mucous membranes moist, TM's normal bilaterally, normal external ear exam Neck exam: Present: normal inspection, full ROM Respiratory exam: Present: normal lung sounds bilaterally Cardiovascular Exam: Present: regular rate, normal rhythm, normal heart sounds Extremities exam: Present: full ROM, tenderness (Tenderness along the medial aspect of the right thigh near the injection site.), normal capillary refill, other (+2 dorsalis pedis and posterior tibialis bilaterally.). Absent: normal inspection (Multiple injection site scarring in the antecubital regions in bilateral upper extremities. Ecchymosis is noted in those regions. Mild tenderness which I suspect to be due to hematomas from multiple attempts to inject. Small region of erythema measuring approximately 2 cm in diameter on the medial aspect of the right thigh from a previous injection site. Region of ecchymosis noted there as well.), calf tenderness Back exam: Present: normal inspection, full ROM Neurological exam: Present: alert, oriented X3 Psychiatric exam: Present: normal affect, normal mood Skin exam: Present: warm, intact, normal color Course Vital Signs 12/19/18 20:29 Temperature 98.4 F Pulse Rate 98 Respiratory 17 Rate Blood Pressure 140/93 O2 Sat by Pulse 100 Oximetry Medical Decision Making - Medical Decision Making patient is a 33-year-old female with history of IV drug use is resenting to the emergency department with a chief complaint of infection at the injection site. On initial evaluation patient did not appear to be under the influence of any substances. Patient does appear to have a small region of tenderness at the injection site along with erythema. I suspect it could be a possible SVT. Ultrasound of the region is negative for an SVT although there appears to be in noncompressible region of the vein. This could be due to multiple attempts to inject in that region. I suspect the region of erythema to be cellulitis. Patient will be treated Bactrim to cover for MRSA considering she is an IV drug user. Patient given a Bactrim starter pack. I wrote a prescription for a 10 day course of Bactrim ascended to her pharmacy. Before I could inform the patient about the prescription the patient eloped. There was an attempt to call the patient to inform her regarding a prescription but connection was not established. Case discussed with physician. Disposition Clinical Impression: Infection of injection site, IVDU (intravenous drug user) Disposition: Left Against Medical Advice Condition: Stable Instructions (If sedation given, give patient instructions): Cellulitis (DC) Additional Instructions: Please take prescribed medication as directed. Please return to emergency department if symptoms worsen. Prescriptions: Sulfamethox-Tmp 800-160Mg [Bactrim Ds] 1 each PO Q12HR #20 tab Is patient prescribed a controlled substance at d/c from ED?: No Referrals: None,Stated [Primary Care Provider] - 1-2 days Time of Disposition: 22:36
== END 2018-12-19 22:15 | disposition left against medical advice (07) ==
LOC: EC 20:21
DX: S70.11XA Contusion of right thigh, initial encounter (principal); F19.90 Other psychoactive substance use, unspecified, uncomplicated; F17.200 Nicotine dependence, unspecified, uncomplicated; J45.909 Unspecified asthma, uncomplicated; Z79.51 Long term (current) use of inhaled steroids; Z88.5 Allergy status to narcotic agent; Z86.14 Personal history of Methicillin resistant Staphylococcus aureus infection; X58.XXXA Exposure to other specified factors, initial encounter
CPT/HCPCS: 99283

== ENCOUNTER 2019-02-16 23:26 | Emergency (ER) | payer OTHER ==
[2019-02-16 23:31] VITALS: BP 148/90; PULSE 104; RESP 18; TEMP 97.8
[2019-02-16] MEDS ORDERED: SULFAMETHOX-TMP 800-160MG 1 EACH TAB PO STA (23:46)
[2019-02-16] MEDS ORDERED: SULFAMETH-TMP DS STARTER PACK 2 TAB BTL PO STA (23:46)
--- NOTE | 2019-02-16 23:50 | ED ---
Skin/Abscess/FB HPI - General Chief complaint: Recheck/Abnormal Lab/Rx Stated complaint: Cellulitis Lft Leg Time Seen by Provider: 02/16/19 23:34 Source: patient, RN notes reviewed, old records reviewed Mode of arrival: ambulatory Limitations: no limitations - History of Present Illness Initial comments: This is a 33-year-old female the ER for evaluation patient resents today for evaluation regarding right lower extremity pain bilateral shortly sialitis warmth and erythema. Believes that she does have recurrent cellulitis and superficial blood clot of the legs on that she's had multiple times secondary to history of long history of IV drug abuse heroin use. Patient denies fever afebrile symptoms of been going on for over a day. Patient has no significant medication ALLERGIES. MD complaint: rash, other (No abscess noted on exam) -: days(s) Location: RLE Severity: moderate Severity scale (1-10): 4 Quality: burning Improves with: none Worsens with: none Context: IVDA Associated symptoms: denies other symptoms Treatments Prior to Arrival: none - Related Data Home Medications Medication Instructions Recorded Confirmed Sulfamethox-Tmp 800-160Mg [Bactrim 1 tab PO Q12HR 11/20/18 12/19/18 Ds] Albuterol Inhaler [Ventolin Hfa 1 - 2 puff INHALATION RT-Q6H PRN 12/19/18 12/19/18 Inhaler] Previous Rx's Medication Instructions Recorded Sulfamethox-Tmp 800-160Mg [Bactrim 1 each PO Q12HR #20 tab 12/19/18 Ds] Sulfamethox-Tmp 800-160Mg [Bactrim 2 tab PO BID #40 tab 02/16/19 DS 800-160 mg] Allergies Allergy/AdvReac Type Severity Reaction Status Date / Time morphine Allergy Dyspnea Verified 12/19/18 20:55 Review of Systems ROS Statement: Those systems with pertinent positive or pertinent negative responses have been documented in the HPI. ROS Other: All systems not noted in ROS Statement are negative. Past Medical History Past Medical History: Asthma, Liver Disease, Osteoarthritis (OA) Additional Past Medical History / Comment(s): KNEE PAIN, MIGRAINES/ back pain,current IVDA, hep c(no tx yet),shingles 2009 History of Any Multi-Drug Resistant Organisms: MRSA Date of last positivie culture/infection: 10/23/2013 MDRO Source:: rt Buttock Past Surgical History: Adenoidectomy, Section, Orthopedic Surgery, Tonsillectomy, Tubal Ligation Additional Past Surgical History / Comment(s): c-sections x4, x2 rt knee lateral release sx, lt patella/lig sx Past Anesthesia/Blood Transfusion Reactions: No Reported Reaction Past Psychological History: No Psychological Hx Reported Smoking Status: Current every day smoker Past Alcohol Use History: None Reported Past Drug Use History: Cocaine, Heroin, IV Drug Use, Marijuana, Methamphetamine - Past Family History Mother Family Medical History: COPD Additional Family Medical History / Comment(s): emphysema, smoker Father Family Medical History: Coronary Artery Disease (CAD) Additional Family Medical History / Comment(s): triple bypas age 32, alcoholic, smoker General Exam Limitations: no limitations General appearance: alert, in no apparent distress Head exam: Present: atraumatic, normocephalic, normal inspection Eye exam: Present: normal appearance, PERRL, EOMI. Absent: scleral icterus, conjunctival injection, periorbital swelling ENT exam: Present: normal exam, mucous membranes moist Neck exam: Present: normal inspection. Absent: tenderness, meningismus, lymphadenopathy Respiratory exam: Present: normal lung sounds bilaterally. Absent: respiratory distress, wheezes, rales, rhonchi, stridor Cardiovascular Exam: Present: regular rate, normal rhythm, normal heart sounds. Absent: systolic murmur, diastolic murmur, rubs, gallop, clicks GI/Abdominal exam: Present: soft, normal bowel sounds. Absent: distended, tenderness, guarding, rebound, rigid Extremities exam: Present: normal inspection, full ROM, normal capillary refill, other (Right side cellulitis warmth or erythema and tenderness secondary to IVDA). Absent: tenderness, pedal edema, joint swelling, calf tenderness Back exam: Present: normal inspection Neurological exam: Present: alert, oriented X3, CN II-XII intact Psychiatric exam: Present: normal affect, normal mood Skin exam: Present: warm, dry, intact, normal color. Absent: rash Course Vital Signs 02/16/19 23:28 Temperature 97.8 F Pulse Rate 104 H Respiratory 18 Rate Blood Pressure 148/90 O2 Sat by Pulse 97 Oximetry - Reevaluation(s) Reevaluation #1: 02/16/19 23:48 Medical record is reviewed Reevaluation #2: 02/16/19 23:48 Patient given antibiotics and anti-inflammatories here in the ER Medical Decision Making - Medical Decision Making 33 female presents today for evaluation of right lower extremity cellulitis, phlebitis history of IVDA history of same. Will place patient on anti- inflammatories and antibiotics and patient can be discharged home Disposition Clinical Impression: Thrombophlebitis of leg, right, Cellulitis of right leg Disposition: HOME SELF-CARE Condition: Good Instructions (If sedation given, give patient instructions): Cellulitis (ED), Superficial Thrombophlebitis (ED) Is patient prescribed a controlled substance at d/c from ED?: No Referrals: None,Stated [Primary Care Provider] - 1-2 days
== END 2019-02-17 00:12 | disposition home or self-care (01) ==
LOC: EC 23:26
DX: L03.115 Cellulitis of right lower limb (principal); I80.3 Phlebitis and thrombophlebitis of lower extremities, unspecified; J45.909 Unspecified asthma, uncomplicated; M19.90 Unspecified osteoarthritis, unspecified site; F17.200 Nicotine dependence, unspecified, uncomplicated; F14.10 Cocaine abuse, uncomplicated; F12.10 Cannabis abuse, uncomplicated; F11.90 Opioid use, unspecified, uncomplicated; F15.90 Other stimulant use, unspecified, uncomplicated; Z79.51 Long term (current) use of inhaled steroids; Z88.5 Allergy status to narcotic agent; Z86.14 Personal history of Methicillin resistant Staphylococcus aureus infection
CPT/HCPCS: 99283

== ENCOUNTER → 2019-05-02 | Outpatient (CLI) | payer OTHER ==
[2019-05-02 14:43] LABS: Basophils # (A) 0.1 k/uL (0-0.2); Basophils % (A) 1 %; Eosinophils # (A) 0.4 k/uL (0-0.7); Eosinophils % (A) 4 %; HCT 50.6 % (34.0-46.0); HGB 15.1 gm/dL (11.4-16.0); Hypochromasia Slight; Lymphocytes # (A) 2.1 k/uL (1.0-4.8); Lymphocytes % (A) 25 %; MCH 26.6 pg (25.0-35.0); MCHC 29.8 g/dL (31.0-37.0); MCV 89.1 fL (80.0-100.0); Mean Platelet Volume 10.6; Monocytes # (A) 0.3 k/uL (0-1.0); Monocytes % (A) 4 %; Neutrophils # (A) 5.4 k/uL (1.3-7.7); Neutrophils % (A) 64 %; Platelet Count 163 k/uL (150-450); RBC 5.67 m/uL (3.80-5.40); RDW 14.5 % (11.5-15.5); WBC 8.4 k/uL (3.8-10.6)
[2019-05-02 19:12] LABS: T4, Free (Free Thyroxine) 1.5 ng/dL (0.80-1.80)
[2019-05-02 19:29] LABS: African American GFR (CKD) 112.3 (60.0-200.0); Albumin 4.3 g/dL (3.80-4.90); Albumin/Globulin Ratio 1.59 (1.60-3.17); Calcium 8.7 mg/dL (8.7-10.3); Globulin 2.7 g/dL (1.6-3.3); Non-African American GFR(CKD) 96.9 (60.0-200.0); Potassium 3.9 mmol/L (3.5-5.5); Thyroid Peroxidase Antibodies <28.0 U/mL (0.0-60.0); Total Bilirubin 0.3 mg/dL (0.3-1.2)
== END | disposition home or self-care (01) ==
LOC: LABWHC1 13:45
PROVIDERS: ATTEND Physician Assistant
DX: B19.20 Unspecified viral hepatitis C without hepatic coma (principal); R06.02 Shortness of breath; R00.2 Palpitations; F17.200 Nicotine dependence, unspecified, uncomplicated
CPT/HCPCS: 36415; 80053; 84439; 84443; 84480; 85025; 86376; 86800

== ENCOUNTER → 2019-05-30 | Outpatient (CLI) | payer OTHER ==
[2019-05-31 00:25] LABS: HIV 1 AB Non-Reactive (Non-Reactive); HIV 2 AB Non-Reactive (Non-Reactive); HIV AB P24 Non-Reactive (Non-Reactive); HIV P24 AG Non-Reactive (Non-Reactive)
== END | disposition home or self-care (01) ==
LOC: LABWHC1 14:39
PROVIDERS: ATTEND Nurse Practitioner
DX: Z09 Encounter for follow-up examination after completed treatment for conditions other than malignant neoplasm (principal); Z86.19 Personal history of other infectious and parasitic diseases
CPT/HCPCS: 36415; 87390; 87522

== ENCOUNTER → 2019-06-11 | Outpatient (CLI) | payer OTHER ==
[2019-06-11 16:21] LABS: Basophils # (A) 0.1 k/uL (0-0.2); Basophils % (A) 1 %; Eosinophils # (A) 0.5 k/uL (0-0.7); Eosinophils % (A) 4 %; HCT 45.1 % (34.0-46.0); HGB 14.3 gm/dL (11.4-16.0); Lymphocytes # (A) 3.3 k/uL (1.0-4.8); Lymphocytes % (A) 31 %; MCHC 31.6 g/dL (31.0-37.0); MCV 88.6 fL (80.0-100.0); Mean Platelet Volume 9.9; Monocytes # (A) 0.5 k/uL (0-1.0); Monocytes % (A) 4 %; Neutrophils # (A) 6.1 k/uL (1.3-7.7); Neutrophils % (A) 58 %; Platelet Count 186 k/uL (150-450); RBC 5.09 m/uL (3.80-5.40); WBC 10.6 k/uL (3.8-10.6)
[2019-06-12 02:14] LABS: Immunoglobulin E 40.1 IU/mL (0.00-114.00)
[2019-06-12 13:07] LABS: Alt. alternata IgE Class CLASS 0; Alternaria alternata IgE <0.10 kU/L (<0.10); Asperg. fumagatus IgE <0.10 kU/L (<0.10); Asperg. fumagatus IgE Class CLASS 0; Bermuda Grass IgE <0.10 kU/L (<0.10); Birch(Com.Silvr) IgE <0.10 kU/L (<0.10); Birch(Com.Silvr) IgE Class CLASS 0; Cat Epith & Dander IgE <0.10 kU/L (<0.10); Cat Epith & Dander IgE Class CLASS 0; Clad herbarum IgE <0.10 kU/L (<0.10); Clad herbarum IgE Class CLASS 0; Cockroach IgE <0.10 kU/L (<0.10); Cottonwood IgE <0.10 kU/L (<0.10); Dermato. Pteronyssinus Class CLASS 2; Dermato. Pteronyssinus IgE 0.99 kU/L (<0.10); Dermato. farinae IgE Class CLASS 1; Dog Dander IgE <0.10 kU/L (<0.10); Elm IgE <0.10 kU/L (<0.10); IgE (Allergen) 45.4 IU/mL (<114.0); Maple (Box Elder) IgE <0.10 kU/L (<0.10); Maple (Box Elder) IgE Class CLASS 0; Mountain Cedar IgE <0.10 kU/L (<0.10); Mountain Cedar IgE Class CLASS 0; Mouse Urine IgE Class CLASS 0; Mouse Urine Proteins,IgE <0.10 kU/L (<0.10); Nettle IgE <0.10 kU/L (<0.10); Nettle IgE Class CLASS 0; Oak IgE <0.10 kU/L (<0.10); Penicillium chrysogenum IgE <0.10 kU/L (<0.10); Penicillium chrysogenum IgE Cl CLASS 0; Rough Marshelder IgE <0.10 kU/L (<0.10); Rough Marshelder IgE Class CLASS 0; Timothy Grass IgE <0.10 kU/L (<0.10); Timothy Grass IgE Class CLASS 0; White Ash IgE Class CLASS 0
== END | disposition home or self-care (01) ==
LOC: LABWHC1 15:10
PROVIDERS: ATTEND Internal Medicine Pulmonary Disease
DX: R05 Cough (principal); R06.2 Wheezing; R06.02 Shortness of breath; J45.50 Severe persistent asthma, uncomplicated
CPT/HCPCS: 36415; 82103; 82785; 85025; 86001; 86003; 86606; 86609

== ENCOUNTER 2019-06-28 01:01 | Emergency (ER) | payer OTHER ==
[2019-06-28 01:07] VITALS: TEMP 97.8
[2019-06-28 02:30] VITALS: BP 154/85; PULSE 95; RESP 18
--- NOTE | 2019-06-28 02:39 | US ---
EXAMINATION TYPE: US venous doppler duplex LE LT DATE OF EXAM: 06/28/2019 2:22 AM COMPARISON: NONE CLINICAL HISTORY: R/O DVT. Lump SIDE PERFORMED: Left TECHNIQUE: The lower extremity deep venous system is examined utilizing real time linear array sonog lucia with graded compression, doppler sonography and color-flow sonography. VESSELS IMAGED: External Iliac Vein (EIV) Common Femoral Vein Deep Femoral Vein Greater Saphenous Vein * Femoral Vein Popliteal Vein Small Saphenous Vein * Proximal Calf Veins (* superficial vessels) Left Leg: Negative for DVT IMPRESSION: No evidence of deep vein thrombosis in the left leg.
[2019-06-28] MEDS ORDERED: SULFAMETHOX-TMP 800-160MG 1 EACH TAB PO STA (02:52)
--- NOTE | 2019-06-28 02:55 | ED ---
Extremity Problem HPI - General Chief complaint: Extremity Problem,Nontraumatic Stated complaint: Poss DVT Lft Leg Time Seen by Provider: 06/28/19 01:14 Source: patient Mode of arrival: ambulatory Limitations: no limitations - History of Present Illness Initial comments: This patient is 33-year-old woman with history of previous thrombophlebitis. She presents to have evaluation of a small area of redness, swelling, pain to the left thigh. She states this is an area where she is to self inject street drugs. She states she is concerned about possibility of blood clot area patient denies any systemic symptoms, no fever or chills, palpitations, syncope, chest pain, dyspnea or hemoptysis. MD Complaint: extremity swelling -: hour(s) Location: left, lower extremity History of Same: Yes Quality: dull Consistency: constant Improves with: nothing Worsens with: palpation - Related Data Home Medications Medication Instructions Recorded Confirmed Sulfamethox-Tmp 800-160Mg [Bactrim 1 tab PO Q12HR 11/20/18 12/19/18 Ds] Albuterol Inhaler [Ventolin Hfa 1 - 2 puff INHALATION RT-Q6H PRN 12/19/18 12/19/18 Inhaler] Previous Rx's Medication Instructions Recorded Sulfamethox-Tmp 800-160Mg [Bactrim 1 each PO Q12HR #20 tab 12/19/18 Ds] Sulfamethox-Tmp 800-160Mg [Bactrim 2 tab PO BID #40 tab 02/16/19 DS 800-160 mg] Sulfamethox-Tmp 800-160Mg [Bactrim 1 each PO Q12HR #14 tab 06/28/19 Ds] Allergies Allergy/AdvReac Type Severity Reaction Status Date / Time morphine Allergy Dyspnea Verified 06/28/19 01:06 Review of Systems ROS Statement: Those systems with pertinent positive or pertinent negative responses have been documented in the HPI. ROS Other: All systems not noted in ROS Statement are negative. Constitutional: Denies: fever, chills Respiratory: Denies: cough, dyspnea, hemoptysis Cardiovascular: Denies: chest pain, palpitations, edema, syncope Gastrointestinal: Denies: abdominal pain, vomiting Skin: Denies: rash Past Medical History Past Medical History: Asthma, Liver Disease, Osteoarthritis (OA) Additional Past Medical History / Comment(s): KNEE PAIN, MIGRAINES/ back pain,current IVDA, hep c(no tx yet),shingles 2008 History of Any Multi-Drug Resistant Organisms: MRSA Date of last positivie culture/infection: 10/23/2013 MDRO Source:: rt Buttock Past Surgical History: Adenoidectomy, Section, Orthopedic Surgery, Tonsillectomy, Tubal Ligation Additional Past Surgical History / Comment(s): c-sections x4, x2 rt knee lateral release sx, lt patella/lig sx Past Anesthesia/Blood Transfusion Reactions: No Reported Reaction Past Psychological History: No Psychological Hx Reported Smoking Status: Current every day smoker Past Alcohol Use History: None Reported Past Drug Use History: Cocaine, Heroin, IV Drug Use, Marijuana, Methamphetamine - Past Family History Mother Family Medical History: COPD Additional Family Medical History / Comment(s): emphysema, smoker Father Family Medical History: Coronary Artery Disease (CAD) Additional Family Medical History / Comment(s): triple bypas age 32, alcoholic, smoker General Exam Limitations: no limitations General appearance: alert, in no apparent distress Head exam: Present: atraumatic, normocephalic Respiratory exam: Present: normal lung sounds bilaterally. Absent: respiratory distress, wheezes, rales, rhonchi, stridor Cardiovascular Exam: Present: regular rate, normal rhythm Neurological exam: Present: alert. Absent: motor sensory deficit Skin exam: Present: warm, dry, intact, normal color. Absent: rash Course Vital Signs 06/28/19 06/28/19 01:04 02:30 Temperature 97.8 F Pulse Rate 84 95 Respiratory 20 18 Rate Blood Pressure 170/115 154/85 O2 Sat by Pulse 100 99 Oximetry Medical Decision Making - Medical Decision Making Patient is 33-year-old woman presenting with concern of DVT. The exam and duplex Doppler negative. She does have small area of cellulitis which will treat with Bactrim. Discussed appropriate further care and follow-up as well as return parameters. Disposition Clinical Impression: Cellulitis Disposition: HOME SELF-CARE Condition: Good Instructions (If sedation given, give patient instructions): Cellulitis (ED) Prescriptions: Sulfamethox-Tmp 800-160Mg [Bactrim Ds] 1 each PO Q12HR #14 tab Is patient prescribed a controlled substance at d/c from ED?: No Referrals: None,Stated [Primary Care Provider] - 1-2 days
== END 2019-06-28 03:22 | disposition home or self-care (01) ==
LOC: EC 01:01
DX: L03.116 Cellulitis of left lower limb (principal); J45.909 Unspecified asthma, uncomplicated; F17.200 Nicotine dependence, unspecified, uncomplicated; Z79.51 Long term (current) use of inhaled steroids; Z88.5 Allergy status to narcotic agent
CPT/HCPCS: 99283

== ENCOUNTER 2019-07-05 09:11 | Emergency (ER) | payer OTHER ==
[2019-07-05 09:24] VITALS: BP 159/84; PULSE 94; RESP 18; TEMP 98.1
--- NOTE | 2019-07-05 09:40 | ED ---
ENT HPI - General Chief complaint: ENT Stated complaint: THRUSH Time Seen by Provider: 07/05/19 09:26 Source: patient, RN notes reviewed Mode of arrival: ambulatory Limitations: no limitations - History of Present Illness Initial comments: This a 33-year-old female sent emergency Department chief complaint of possible thrush. Patient states that she has a coating on tongue for the last week. She states that she was seen at [facility] they told her that she had strep pharyngitis. Patient states she was placed on Augmentin and prior to that she was taking Bactrim for some cellulitis. Patient states she also uses Qvar inhaler daily and states that she's had recurrent thrush because of the inhaled steroids. - Related Data Home Medications Medication Instructions Recorded Confirmed Sulfamethox-Tmp 800-160Mg [Bactrim 1 tab PO Q12HR 11/20/18 12/19/18 Ds] Albuterol Inhaler (Bulk) [Ventolin 1 - 2 puff INHALATION RT-Q6H PRN 12/19/18 12/19/18 Hfa Inhaler] Previous Rx's Medication Instructions Recorded Sulfamethox-Tmp 800-160Mg [Bactrim 1 each PO Q12HR #20 tab 12/19/18 Ds] Sulfamethox-Tmp 800-160Mg [Bactrim 2 tab PO BID #40 tab 02/16/19 DS 800-160 mg] Sulfamethox-Tmp 800-160Mg [Bactrim 1 each PO Q12HR #14 tab 06/28/19 Ds] Fluconazole [Diflucan] 150 mg PO ONCE #2 tab 07/05/19 Nystatin 100,000 Unit/ml Susp 5 ml PO QID #200 ml 07/05/19 [Mycostatin Oral Susp] Allergies Allergy/AdvReac Type Severity Reaction Status Date / Time morphine Allergy Dyspnea Verified 07/05/19 09:24 Review of Systems ROS Statement: Those systems with pertinent positive or pertinent negative responses have been documented in the HPI. ROS Other: All systems not noted in ROS Statement are negative. Past Medical History Past Medical History: Asthma, Liver Disease, Osteoarthritis (OA) Additional Past Medical History / Comment(s): KNEE PAIN, MIGRAINES/ back pain,current IVDA, hep c(no tx yet),shingles 2009 History of Any Multi-Drug Resistant Organisms: MRSA Date of last positivie culture/infection: 10/23/2013 MDRO Source:: rt Buttock Past Surgical History: Adenoidectomy, Section, Orthopedic Surgery, Tonsillectomy, Tubal Ligation Additional Past Surgical History / Comment(s): c-sections x4, x2 rt knee lateral release sx, lt patella/lig sx Past Anesthesia/Blood Transfusion Reactions: No Reported Reaction Past Psychological History: No Psychological Hx Reported Smoking Status: Current every day smoker Past Alcohol Use History: None Reported Past Drug Use History: Cocaine, Heroin, IV Drug Use, Marijuana, Methamphetamine - Past Family History Mother Family Medical History: COPD Additional Family Medical History / Comment(s): emphysema, smoker Father Family Medical History: Coronary Artery Disease (CAD) Additional Family Medical History / Comment(s): triple bypas age 32, alcoholic, smoker General Exam Limitations: no limitations General appearance: alert, in no apparent distress Head exam: Present: atraumatic, normocephalic, normal inspection Eye exam: Present: normal appearance, PERRL, EOMI. Absent: scleral icterus, conjunctival injection, periorbital swelling ENT exam: Present: mucous membranes moist, TM's normal bilaterally, normal ext ernal ear exam. Absent: normal oropharynx (Extensive white coating on the tongue, noted on the uvula also.) Neck exam: Present: normal inspection, full ROM. Absent: tenderness, meningismus, lymphadenopathy Respiratory exam: Present: normal lung sounds bilaterally. Absent: respiratory distress, wheezes, rales, rhonchi, stridor Cardiovascular Exam: Present: regular rate, normal rhythm, normal heart sounds. Absent: systolic murmur, diastolic murmur, rubs, gallop, clicks Course Vital Signs 07/05/19 09:22 Temperature 98.1 F Pulse Rate 94 Respiratory 18 Rate Blood Pressure 159/84 O2 Sat by Pulse 100 Oximetry Medical Decision Making - Medical Decision Making Patient has evidence of thrush most likely relates to recent antibiotic use and inhaled steroid use. Patient will be placed on nystatin. Return parameters were discussed. Disposition Clinical Impression: Thrush, oral Disposition: HOME SELF-CARE Condition: Stable Instructions (If sedation given, give patient instructions): Oral Candidiasis (ED) Additional Instructions: Please return to the Emergency Department if symptoms worsen or any other concerns. Prescriptions: Fluconazole [Diflucan] 150 mg PO ONCE #2 tab Nystatin 100,000 Unit/ml Susp [Mycostatin Oral Susp] 5 ml PO QID #200 ml Is patient prescribed a controlled substance at d/c from ED?: No Referrals: None,Stated [Primary Care Provider] - 1-2 days Time of Disposition: 09:39
== END 2019-07-05 09:46 | disposition home or self-care (01) ==
LOC: EC 09:11
DX: B37.0 Candidal stomatitis (principal); L03.90 Cellulitis, unspecified; J45.909 Unspecified asthma, uncomplicated; F17.200 Nicotine dependence, unspecified, uncomplicated; Z88.5 Allergy status to narcotic agent; Z79.899 Other long term (current) drug therapy; Z86.14 Personal history of Methicillin resistant Staphylococcus aureus infection
CPT/HCPCS: 99282

== ENCOUNTER → 2019-08-08 | Outpatient (CLI) | payer OTHER ==
[2019-08-14 14:51] LABS: HCV Qualitative Result DETECTED (Not detected); HCV Quant Log 4.46 (<1.08)
== END | disposition home or self-care (01) ==
LOC: LABWHC1 09:39
PROVIDERS: ATTEND Nurse Practitioner
DX: Z86.19 Personal history of other infectious and parasitic diseases (principal)
CPT/HCPCS: 36415; 87522; 87902

== ENCOUNTER → 2019-09-23 | Outpatient (CLI) | payer OTHER ==
--- NOTE | 2019-09-23 09:18 | US ---
EXAMINATION TYPE: US liver DATE OF EXAM: 09/23/2019 COMPARISON: NONE CLINICAL HISTORY: B18.2 CHR VIRAL HEP C. NPO. No prior surgeries. EXAM MEASUREMENTS: Liver Length: 14.1 cm Gallbladder Wall: 0.2 cm CBD: 0.3 cm Right Kidney: 10.4 x 5.6 x 4.7 cm Pancreas: Tail obscured by overlying bowel gas. Heterogeneous in appearance. Main pancreatic duct = 2.0 mm Liver: wnl Gallbladder: wnl Evidence for sonographic Alcantara's sign: neg CBD: wnl Right Kidney: No hydronephrosis or masses seen IMPRESSION: No suspicious intrahepatic mass or intrahepatic ductal dilatation. No ascites noted.
[2019-09-23 09:52] LABS: Basophils # (A) 0.1 k/uL (0-0.2); Basophils % (A) 1 %; Eosinophils # (A) 0.5 k/uL (0-0.7); Eosinophils % (A) 5 %; HCT 45.3 % (34.0-46.0); Lymphocytes % (A) 28 %; MCH 27.8 pg (25.0-35.0); MCV 89.7 fL (80.0-100.0); Mean Platelet Volume 10.2; Monocytes # (A) 0.5 k/uL (0-1.0); Monocytes % (A) 5 %; Neutrophils # (A) 6.4 k/uL (1.3-7.7); Neutrophils % (A) 60 %; Platelet Count 151 k/uL (150-450); RBC 5.05 m/uL (3.80-5.40); RDW 13.4 % (11.5-15.5); WBC 10.7 k/uL (3.8-10.6)
[2019-09-23 09:56] LABS: INR 0.9 (<1.2); Prothrombin Time 9.9 sec (9.0-12.0)
[2019-09-23 10:09] LABS: ALT 29 U/L (4-34); AST 31 U/L (14-36); African American GFR (CKD) >90 (>60 ml/min/1.73 sqM); Albumin 3.7 g/dL (3.5-5.0); Alkaline Phosphatase 81 U/L (38-126); Anion Gap 5 mmol/L; Blood Urea Nitrogen 13 mg/dL (7-17); Calcium 8.8 mg/dL (8.4-10.2); Carbon Dioxide 26 mmol/L (22-30); Chloride 109 mmol/L (98-107); Glucose 86 mg/dL (74-99); Non-African American GFR(CKD) >90 (>60 ml/min/1.73 sqM); Sodium 140 mmol/L (137-145); Total Bilirubin 0.6 mg/dL (0.2-1.3); Total Protein 7.5 g/dL (6.3-8.2)
[2019-09-23 10:21] LABS: Potassium 4.4 mmol/L (3.5-5.1)
== END | disposition home or self-care (01) ==
LOC: RADUSWWP 08:36
PROVIDERS: ATTEND Internal Medicine Gastroenterology
DX: B18.2 Chronic viral hepatitis C (principal)
CPT/HCPCS: 76705; 80053; 81596; 82105; 85025; 85610

== ENCOUNTER → 2019-11-13 | Outpatient (CLI) | payer OTHER ==
[2019-11-13 07:36] LABS: Basophils # (A) 0.1 k/uL (0-0.2); Basophils % (A) 1 %; Eosinophils # (A) 0.5 k/uL (0-0.7); Eosinophils % (A) 5 %; HCT 48.1 % (34.0-46.0); HGB 14.8 gm/dL (11.4-16.0); Hypochromasia Slight; Lymphocytes # (A) 3.5 k/uL (1.0-4.8); Lymphocytes % (A) 33 %; MCH 27.2 pg (25.0-35.0); MCHC 30.7 g/dL (31.0-37.0); MCV 88.6 fL (80.0-100.0); Monocytes # (A) 0.5 k/uL (0-1.0); Monocytes % (A) 5 %; Neutrophils # (A) 5.9 k/uL (1.3-7.7); Neutrophils % (A) 55 %; Platelet Count 196 k/uL (150-450); RBC 5.43 m/uL (3.80-5.40); RDW 13.5 % (11.5-15.5); WBC 10.8 k/uL (3.8-10.6)
[2019-11-13 11:40] LABS: Albumin 4.1 g/dL (3.80-4.90); Albumin/Globulin Ratio 1.41 (1.60-3.17); Anion Gap 8.2 mmol/L (4.00-12.00); BUN/Creat Ratio 21.43 Ratio (12.00-20.00); Calcium 9.5 mg/dL (8.7-10.3); Carbon Dioxide 25.8 mmol/L (21.6-31.8); Globulin 2.9 g/dL (1.6-3.3); Potassium 4.3 mmol/L (3.5-5.5); Total Bilirubin 0.2 mg/dL (0.2-1.2)
== END | disposition home or self-care (01) ==
LOC: LABWHC1 07:00
PROVIDERS: ATTEND Nurse Practitioner
DX: B18.2 Chronic viral hepatitis C (principal)
CPT/HCPCS: 36415; 80053; 85025; 87522

== ENCOUNTER 2019-11-27 21:54 | Emergency (ER) | payer BC, OTHER ==
--- NOTE | 2019-11-27 22:33 | ED ---
Chest Pain HPI - General Chief Complaint: Chest Pain Stated Complaint: Chest Pains Time Seen by Provider: 11/27/19 22:17 Source: patient, RN notes reviewed, old records reviewed Mode of arrival: ambulatory Limitations: no limitations - History of Present Illness Initial Comments: This is a 34-year-old female DF for evaluation presents today for evaluation chest pain history of drug abuse, she is a smoker with COPD, pain started today while at work is improved currently here in the ER. I'll cough no congestion or shortness of breath no sweating no recent fevers no travel history no sick contacts. No history of DVT or PE. Pain was left-sided that is resolved into her left arm she still has some tingling in the ER but is much improved. Patient with increased stress with work otherwise no complaints MD Complaint: chest pain -: hour(s) Onset: during rest Pain Location: left chest Pain Radiation: none, LUE Severity: mild Severity scale (1-10): 2 Quality: sharp Consistency: intermittent, now resolved Improves With: nothing Worsens With: nothing Other Symptoms: cough Treatments Prior to Arrival: none - Related Data Home Medications Medication Instructions Recorded Confirmed Sulfamethox-Tmp 800-160Mg [Bactrim 1 tab PO Q12HR 11/20/18 12/19/18 Ds] Albuterol Inhaler (Mhu) [Ventolin 1 - 2 puff INHALATION RT-Q6H PRN 12/19/18 12/19/18 Hfa Inhaler] Previous Rx's Medication Instructions Recorded Sulfamethox-Tmp 800-160Mg [Bactrim 1 each PO Q12HR #20 tab 12/19/18 Ds] Sulfamethox-Tmp 800-160Mg [Bactrim 2 tab PO BID #40 tab 02/16/19 DS 800-160 mg] Sulfamethox-Tmp 800-160Mg [Bactrim 1 each PO Q12HR #14 tab 06/28/19 Ds] Fluconazole [Diflucan] 150 mg PO ONCE #2 tab 07/05/19 Nystatin 100,000 Unit/ml Susp 5 ml PO QID #200 ml 07/05/19 [Mycostatin Oral Susp] Allergies Allergy/AdvReac Type Severity Reaction Status Date / Time morphine Allergy Dyspnea Verified 11/27/19 22:03 Review of Systems ROS Statement: Those systems with pertinent positive or pertinent negative responses have been documented in the HPI. ROS Other: All systems not noted in ROS Statement are negative. EKG Findings - EKG Comments: EKG Findings:: EKG is sinus rhythm 76 NH 164 QRS 86 QTc 447 Past Medical History Past Medical History: Asthma, Liver Disease, Osteoarthritis (OA) Additional Past Medical History / Comment(s): KNEE PAIN, MIGRAINES/ back pain,current IVDA, hep c(no tx yet),shingles 2009 History of Any Multi-Drug Resistant Organisms: MRSA Date of last positivie culture/infection: 10/23/2013 MDRO Source:: rt Buttock Past Surgical History: Adenoidectomy, Section, Orthopedic Surgery, Tonsillectomy, Tubal Ligation Additional Past Surgical History / Comment(s): c-sections x4, x2 rt knee lateral release sx, lt patella/lig sx Past Anesthesia/Blood Transfusion Reactions: No Reported Reaction Past Psychological History: Anxiety Smoking Status: Current every day smoker Past Alcohol Use History: None Reported Past Drug Use History: Cocaine, Heroin, IV Drug Use, Marijuana, Methamphetamine - Past Family History Mother Family Medical History: COPD Additional Family Medical History / Comment(s): emphysema, smoker Father Family Medical History: Coronary Artery Disease (CAD) Additional Family Medical History / Comment(s): triple bypas age 32, alcoholic, smoker General Exam Limitations: no limitations General appearance: alert, in no apparent distress Head exam: Present: atraumatic, normocephalic, normal inspection Eye exam: Present: normal appearance, PERRL, EOMI. Absent: scleral icterus, conjunctival injection, periorbital swelling ENT exam: Present: normal exam, mucous membranes moist Neck exam: Present: normal inspection. Absent: tenderness, meningismus, lymphadenopathy Respiratory exam: Present: normal lung sounds bilaterally. Absent: respiratory distress, wheezes, rales, rhonchi, stridor Cardiovascular Exam: Present: regular rate, normal rhythm, normal heart sounds. Absent: systolic murmur, diastolic murmur, rubs, gallop, clicks GI/Abdominal exam: Present: soft, normal bowel sounds. Absent: distended, tenderness, guarding, rebound, rigid Extremities exam: Present: normal inspection, full ROM, normal capillary refill. Absent: tenderness, pedal edema, joint swelling, calf tenderness Back exam: Present: normal inspection Neurological exam: Present: alert, oriented X3, CN II-XII intact Psychiatric exam: Present: normal affect, normal mood Skin exam: Present: warm, dry, intact, normal color. Absent: rash Course Vital Signs 11/27/19 11/27/19 21:58 22:57 Temperature 98.6 F Pulse Rate 80 Pulse Rate [ 65 Bilateral] Respiratory 20 Rate Blood Pressure 140/84 O2 Sat by Pulse 100 Oximetry - Reevaluation(s) Reevaluation #1: 11/27/19 23:22 Medical record is reviewed Reevaluation #2: 11/27/19 23:22 Patient spoken at length regarding findings and symptoms. Questions answered Reevaluation #3: 11/27/19 23:22 No Chest pain no current arm pain no shortness of breath Reevaluation #4: 11/27/19 23:22 Patient admits to anxiety and stress over job Disposition Clinical Impression: Atypical chest pain, Chest pain, Anxiety Disposition: HOME SELF-CARE Condition: Good Instructions (If sedation given, give patient instructions): Chest Pain (ED) Is patient prescribed a controlled substance at d/c from ED?: No Referrals: Nonstaff,Physician [Primary Care Provider] - 1-2 days
--- NOTE | 2019-11-27 22:43 | XR ---
EXAMINATION TYPE: XR chest 2V DATE OF EXAM: 11/27/2019 COMPARISON: 11/28/2018 HISTORY: Chest pain TECHNIQUE: FINDINGS: Heart is normal. The lungs are clear of consolidation. There is slight blunting right costo phrenic angle. There no hilar masses. There is no heart failure. Bony thorax is intact. IMPRESSION: There is some mild pleural reaction or scarring at the lateral right lung base unchanged compared to old exam. Normal heart.
[2019-11-27 23:47] VITALS: BP 158/97; PULSE 73; RESP 18; TEMP 98.3
== END 2019-11-27 23:28 | disposition home or self-care (01) ==
LOC: EC 21:54
DX: F41.9 Anxiety disorder, unspecified (principal); R07.89 Other chest pain; R05 Cough; R20.2 Paresthesia of skin; J44.9 Chronic obstructive pulmonary disease, unspecified; F17.200 Nicotine dependence, unspecified, uncomplicated; Z79.51 Long term (current) use of inhaled steroids; Z88.5 Allergy status to narcotic agent; Z82.49 Family history of ischemic heart disease and other diseases of the circulatory system
CPT/HCPCS: 71046; 93005; 99285

== ENCOUNTER 2019-12-31 08:59 | Emergency (ER) | payer BC, OTHER ==
[2019-12-31 09:05] VITALS: BP 143/90; PULSE 80; RESP 16; TEMP 97.8
--- NOTE | 2019-12-31 09:51 | XR ---
EXAMINATION TYPE: XR knee 4V RT DATE OF EXAM: 12/31/2019 COMPARISON: NONE HISTORY: Pain TECHNIQUE: Four views are submitted. FINDINGS: Joint spaces are preserved. Osseous structures are intact. No acute fracture seen. IMPRESSION: 1. No acute fracture or dislocation.
--- NOTE | 2019-12-31 10:20 | US ---
EXAMINATION TYPE: US venous doppler duplex LE RT DATE OF EXAM: 12/31/2019 10:12 AM COMPARISON: NONE CLINICAL HISTORY: pain. SIDE PERFORMED: Right TECHNIQUE: The lower extremity deep venous system is examined utilizing real time linear array sonog lucia with graded compression, doppler sonography and color-flow sonography. VESSELS IMAGED: External Iliac Vein (EIV) Common Femoral Vein Deep Femoral Vein Greater Saphenous Vein * Femoral Vein Popliteal Vein Small Saphenous Vein * Proximal Calf Veins (* superficial vessels) Right Leg: Negative for DVT IMPRESSION: Grayscale, color doppler, spectral doppler imaging performed of the deep veins of the lo wer extremities. There is normal flow, compressibility, vascular waveforms.
--- NOTE | 2019-12-31 10:46 | ED ---
General Adult HPI - General Chief complaint: Extremity Injury, Lower Stated complaint: KNEE PAIN IHS??? Time Seen by Provider: 12/31/19 09:07 Source: patient, RN notes reviewed, old records reviewed Mode of arrival: wheelchair Limitations: physical limitation - History of Present Illness Initial comments: 34-year-old female patient presents to ED for evaluation of right knee pain. Patient reports that she has had a prior knee surgery. Reports that she is a former drug user however she is currently in recovery not using any drugs. Denies any chance of being . Patient was that she started a new job in which she is on her feet all the time. Patient reports that her right knee has been causing her some pain particularly in the back. Patient reports that while she was walking yesterday she felt a pop behind her right knee. She is now having difficulty bearing weight on the right lower extremity. Did not fall or hit her head. No chest pain shortness of breath. Systemic: Pt denies fatigue, fever/chills, rash. Pt denies weakness, night sweats, weight loss. Neuro: Pt denies headache, visual disturbances, syncope or pre-syncope. HEENT: Pt denies ocular discharge or irritation, otalgia, rhinorrhea, pharyngitis or notable lymphadenopathy. Cardiopulmonary: Pt denies chest pain, SOB, heart palpitations, dyspnea on exertion. Abdominal/GI: Pt denies abdominal pain, n/v/d. : Pt denies dysuria, burning w/ urination, frequency/urgency. Denies new onset urinary or bowel incontinence. MSK: Pt denies loss of strength or function in extremities. Neuro: Pt denies new onset weakness, paresthesias. - Related Data Home Medications Medication Instructions Recorded Confirmed ALPRAZolam [Xanax] 1 mg PO DAILY@0900 12/31/19 12/31/19 ALPRAZolam [Xanax] 1 mg PO DAILY@2100 12/31/19 12/31/19 Albuterol Sulfate [Albuterol 2 puff INHALATION RT-BID 12/31/19 12/31/19 Sulfate Hfa] Beclomethasone Dip 80 Mcg/Puff 2 puff INHALATION RT-BID 12/31/19 12/31/19 [Qvar 80 mcg] Buprenorphine HCl/Naloxone HCl 1 film SUBLINGUAL TID 12/31/19 12/31/19 [Suboxone 8 mg-2 mg Sl Film] Ibuprofen [Motrin] 800 mg PO Q8H 12/31/19 12/31/19 Lisinopril-Hctz 20-12.5 mg 1 tab PO DAILY 12/31/19 12/31/19 [Zestoretic 20-12.5] Loratadine [Claritin] 10 mg PO DAILY 12/31/19 12/31/19 Montelukast [Singulair] 10 mg PO DAILY 12/31/19 12/31/19 Allergies Allergy/AdvReac Type Severity Reaction Status Date / Time morphine Allergy Dyspnea Verified 12/31/19 09:47 Review of Systems ROS Statement: Those systems with pertinent positive or pertinent negative responses have been documented in the HPI. ROS Other: All systems not noted in ROS Statement are negative. Past Medical History Past Medical History: Asthma, Liver Disease, Osteoarthritis (OA) Additional Past Medical History / Comment(s): KNEE PAIN, MIGRAINES/ back pain,current IVDA, hep c(no tx yet),shingles 2008 History of Any Multi-Drug Resistant Organisms: MRSA Date of last positivie culture/infection: 10/23/2013 MDRO Source:: rt Buttock Past Surgical History: Adenoidectomy, Section, Orthopedic Surgery, Tonsillectomy, Tubal Ligation Additional Past Surgical History / Comment(s): c-sections x4, x2 rt knee lateral release sx, lt patella/lig sx Past Anesthesia/Blood Transfusion Reactions: No Reported Reaction Past Psychological History: Anxiety Smoking Status: Current every day smoker Past Alcohol Use History: None Reported Past Drug Use History: Cocaine, Heroin, IV Drug Use, Marijuana, Methamphetamine - Past Family History Mother Family Medical History: COPD Additional Family Medical History / Comment(s): emphysema, smoker Father Family Medical History: Coronary Artery Disease (CAD) Additional Family Medical History / Comment(s): triple bypas age 32, alcoholic, smoker General Exam - General Exam Comments Initial Comments: Constitutional: NAD, AOX3, Pt has pleasant affect. HEENT: NC/AT, trachea midline, neck supple, no lymphadenopathy. External ears appear normal, without discharge. Mucous membranes moist. Eyes PERRLA, EOM intact. There is no scleral icterus. No pallor noted. Cardiopulmonary: RRR, no murmurs, rubs or gallops, no JVD noted. Lungs CTAB in anterior and posterior cho. No peripheral edema. Abdominal exam: Abdomen soft and non-distended. Neuro: CN II-XII grossly intact. No nuchal rigidity. No raccon eyes, no mcqueen sign, no hemotympanum. No cervical spinal tenderness. MSK: Mild tenderness to right posterior knee no skin changes. Range of motion of knee is somewhat limited secondary to discomfort. Distal pulses are intact and equal. No posterior calf tenderness bilaterally, homans sign negative bilaterally. Posterior tibialis and radial pulse +2 bilaterally. Sensation intact in upper and lower extremities. Limitations: physical limitation Course Vital Signs 12/31/19 09:01 Temperature 97.8 F Pulse Rate 80 Respiratory 16 Rate Blood Pressure 143/90 O2 Sat by Pulse 100 Oximetry Medical Decision Making - Medical Decision Making 34-year-old female patient proceeded for evaluation of right knee pain. Patient fell signs stable, afebrile. When film and ultrasound are negative for DVT/acute osseous process. Patient placed in knee immobilizer of discharge the patient follow up and return precautions. Case discussed with Dr. Charles. Disposition Clinical Impression: Knee sprain Disposition: HOME SELF-CARE Condition: Stable Instructions (If sedation given, give patient instructions): Knee Sprain (ED) Additional Instructions: Follow up with PCP and orthopedic consult. Continue to wear immobilizer, use crutches, do not bear weight on RLE. Return to ED with any worsening symptoms. Is patient prescribed a controlled substance at d/c from ED?: No Referrals: None,Stated [Primary Care Provider] - 1-2 days Golden Villarreal MD [STAFF PHYSICIAN] - 1-2 days
== END 2019-12-31 10:48 | disposition home or self-care (01) ==
LOC: EC 08:59
DX: S83.91XA Sprain of unspecified site of right knee, initial encounter (principal); J45.909 Unspecified asthma, uncomplicated; M19.90 Unspecified osteoarthritis, unspecified site; B19.20 Unspecified viral hepatitis C without hepatic coma; F41.9 Anxiety disorder, unspecified; F17.200 Nicotine dependence, unspecified, uncomplicated; Z79.51 Long term (current) use of inhaled steroids; Z79.899 Other long term (current) drug therapy; Z88.5 Allergy status to narcotic agent; Z86.14 Personal history of Methicillin resistant Staphylococcus aureus infection; X50.9XXA Other and unspecified overexertion or strenuous movements or postures, initial encounter; Y93.01 Activity, walking, marching and hiking; Y92.69 Other specified industrial and construction area as the place of occurrence of the external cause
CPT/HCPCS: 99284

== ENCOUNTER → 2020-02-02 | Outpatient (CLI) | payer BC, OTHER | END | disposition home or self-care (01) | LOC: LABWHC1 11:30 | PROVIDERS: ATTEND Emergency Medicine | DX: Z20.828 Contact with and (suspected) exposure to other viral communicable diseases (principal) | CPT/HCPCS: U0003; C9803 ==

== ENCOUNTER → 2020-05-13 | Outpatient (CLI) | payer OTHER ==
--- NOTE | 2020-05-14 07:11 | US ---
EXAMINATION TYPE: US liver DATE OF EXAM: 05/13/2020 COMPARISON: CLINICAL HISTORY: B18.2 CHR VIRAL HEP C. History of Hep C. No pain. EXAM MEASUREMENTS: Liver Length: 15.5 cm Gallbladder Wall: 0.2 cm CBD: 0.4 cm Right Kidney: 10.5 x 5.5 x 4.5 cm Pancreas: Tail obscured by overlying bowel gas. Appears echogenic in appearance. Liver: Coarse in appearance. Gallbladder: wnl, fold seen Evidence for sonographic Alcantara's sign: neg CBD: wnl Right Kidney: No hydronephrosis or masses seen IMPRESSION: Coarse echo appearance throughout the liver may reflect fatty hepatic infiltration or dif fuse hepatocellular disease.
== END | disposition home or self-care (01) ==
LOC: RADUSWWP 16:39
PROVIDERS: ATTEND Internal Medicine Gastroenterology
DX: R93.2 Abnormal findings on diagnostic imaging of liver and biliary tract (principal); B18.2 Chronic viral hepatitis C
CPT/HCPCS: 76705

== ENCOUNTER → 2020-05-19 | Outpatient (CLI) | payer BC, OTHER ==
[2020-05-19 11:06] LABS: Basophils # (A) 0.06 X 10*3/uL (0.00-0.10); Basophils % (A) 0.5 %; Eosinophils # (A) 0.31 X 10*3/uL (0.04-0.35); Eosinophils % (A) 2.8 %; HCT 42.7 % (37.2-46.3); Lymphocytes # (A) 2.96 X 10*3/uL (0.90-5.00); Lymphocytes % (A) 26.5 %; MCH 25.9 pg (27.0-32.0); MCHC 30.4 g/dL (32.0-37.0); MCV 85.1 fL (80.0-97.0); Mean Platelet Volume 12.4 fL (9.5-12.2); Monocytes # (A) 0.52 X 10*3/uL (0.20-1.00); Monocytes % (A) 4.7 %; Neutrophils # (A) 7.29 X 10*3/uL (1.80-7.70); Neutrophils % (A) 65.2 %; Platelet Count 243 X 10*3/uL (140-440); RBC 5.02 X 10*6/uL (4.10-5.20); RDW 13.8 % (11.5-14.5); WBC 11.17 X 10*3/uL (4.50-10.00)
[2020-05-19 11:14] LABS: African American GFR (CKD) 111.5 (60.0-200.0); Albumin 4.2 g/dL (3.80-4.90); Albumin/Globulin Ratio 1.62 (1.60-3.17); Anion Gap 4.5 mmol/L (4.00-12.00); BUN/Creat Ratio 18.75 Ratio (12.00-20.00); Calcium 8.7 mg/dL (8.7-10.3); Carbon Dioxide 28.5 mmol/L (21.6-31.8); Globulin 2.6 g/dL (1.6-3.3); Non-African American GFR(CKD) 96.2 (60.0-200.0); Potassium 3.8 mmol/L (3.5-5.5); Total Bilirubin 0.2 mg/dL (0.3-1.2); Total Protein 6.8 g/dL (6.2-8.2)
== END | disposition home or self-care (01) ==
LOC: LABWHC1 07:28
PROVIDERS: ATTEND Nurse Practitioner
DX: B18.2 Chronic viral hepatitis C (principal)
CPT/HCPCS: 36415; 80053; 82105; 85025; 87522

== ENCOUNTER 2020-11-01 21:09 | Emergency (ER) | payer BC, OTHER ==
[2020-11-01 21:13] VITALS: TEMP 98.7
--- NOTE | 2020-11-01 22:35 | ED ---
General Adult HPI - General Chief complaint: Extremity Problem,Nontraumatic Stated complaint: L Leg Pain Time Seen by Provider: 11/01/20 21:23 Source: patient Mode of arrival: wheelchair Limitations: no limitations - History of Present Illness Initial comments: 27-year-old female with a past medical history of polysubstance abuse, asthma, liver disease, knee pain presents to the emergency room for a chief complaint of left knee pain. Patient reports she has chronic left knee pain that comes and goes. 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 States that her knee has been starting to hurt her and then a few days ago she went to sit cross leg and felt a pop in the back of her knee. Patient states this felt like a previous meniscus tear. Patient denies any fevers.Patient has no other complaints at this time including shortness of breath, chest pain, abdominal pain, nausea or vomiting, headache, or visual changes. - Related Data Home Medications Medication Instructions Recorded Confirmed ALPRAZolam [Xanax] 1 - 2 mg PO BID PRN 12/31/19 11/01/20 Albuterol Sulfate [Albuterol 2 puff INHALATION RT-QID PRN 12/31/19 11/01/20 Sulfate Hfa] Beclomethasone Dip 80 Mcg/Puff 2 puff INHALATION RT-BID 12/31/19 11/01/20 [Qvar 80 mcg] Buprenorphine HCl/Naloxone HCl 1 film SUBLINGUAL BID 12/31/19 11/01/20 [Suboxone 8 mg-2 mg Sl Film] Ibuprofen [Motrin] 800 mg PO Q8H PRN 12/31/19 11/01/20 Lisinopril-Hctz 20-12.5 mg 1 tab PO DAILY 12/31/19 11/01/20 [Zestoretic 20-12.5] Loratadine [Claritin] 10 mg PO DAILY 12/31/19 11/01/20 Montelukast [Singulair] 10 mg PO DAILY 12/31/19 11/01/20 Omeprazole [PriLOSEC] 20 mg PO DAILY 11/01/20 11/01/20 Silver Sulfadiazine [SSD 1% Cream] 1 applic TOPICAL DAILY 11/01/20 11/01/20 Allergies Allergy/AdvReac Type Severity Reaction Status Date / Time morphine Allergy Dyspnea Verified 11/01/20 22:04 Review of Systems ROS Statement: Those systems with pertinent positive or pertinent negative responses have been documented in the HPI. ROS Other: All systems not noted in ROS Statement are negative. Past Medical History Past Medical History: Asthma, Liver Disease, Osteoarthritis (OA) Additional Past Medical History / Comment(s): KNEE PAIN, MIGRAINES/ back pain,current IVDA, hep c(no tx yet),shingles 2009 History of Any Multi-Drug Resistant Organisms: MRSA Date of last positivie culture/infection: 10/23/2013 MDRO Source:: rt Buttock Past Surgical History: Adenoidectomy, Section, Orthopedic Surgery, Tonsillectomy, Tubal Ligation Additional Past Surgical History / Comment(s): c-sections x4, x2 rt knee lateral release sx, lt patella/lig sx Past Anesthesia/Blood Transfusion Reactions: No Reported Reaction Past Psychological History: Anxiety Smoking Status: Current every day smoker Past Alcohol Use History: None Reported Past Drug Use History: Cocaine, Heroin, IV Drug Use, Marijuana, Methamphetamine - Past Family History Mother Family Medical History: COPD Additional Family Medical History / Comment(s): emphysema, smoker Father Family Medical History: Coronary Artery Disease (CAD) Additional Family Medical History / Comment(s): triple bypas age 32, alcoholic, smoker General Exam Limitations: no limitations General appearance: alert, in no apparent distress Head exam: Present: atraumatic Eye exam: Present: normal appearance, PERRL, EOMI. Absent: scleral icterus, conjunctival injection, periorbital swelling ENT exam: Present: normal exam, mucous membranes moist Neck exam: Present: normal inspection, full ROM. Absent: tenderness, meningismus, lymphadenopathy Respiratory exam: Present: normal lung sounds bilaterally. Absent: respiratory distress, wheezes, rales, rhonchi, stridor Cardiovascular Exam: Present: regular rate, normal rhythm, normal heart sounds. Absent: systolic murmur, diastolic murmur, rubs, gallop, clicks Extremities exam: Present: full ROM (Full range of motion of the left knee including flexion and extension. Pain with full flexion.), tenderness (Tenderness to the lateral aspect of the left knee.), normal capillary refill (Capillary refill less than 2 seconds, DP pulse 2+ left lower extremity), other (Sensation intact left lower extremity). Absent: joint swelling (No edema erythema noted of the left knee. No increased warmth.), calf tenderness (no calf Tenderness or posterior knee tenderness.) Course Vital Signs 11/01/20 21:11 Temperature 98.7 F Pulse Rate 86 Respiratory 16 Rate Blood Pressure 141/78 O2 Sat by Pulse 98 Oximetry Medical Decision Making - Medical Decision Making Vitals are stable. Patient afebrile. Patient is no longer an IV drug user refuses any pain medication. Currently on Suboxone. Patient has full range of motion of the left knee without erythema or edema. She does have tenderness to the left lateral aspect of the knee. At this time I am not clinically concerned for septic arthritis. Pain is consistent with previous meniscus injury and patient did feel a pop 2-3 days ago. X-ray of the left knee is negative. No fracture. At this time patient was placed in a knee immobilizer. She will follow up with orthopedics. [facility] She will return here for any worsening symptoms. Disposition Clinical Impression: Knee pain Disposition: HOME SELF-CARE Condition: Good Instructions (If sedation given, give patient instructions): Knee Pain (ED) Additional Instructions: Please follow-up with orthopedics by calling tomorrow for an appointment. In the meantime wear knee immobilizer. You could take Motrin or Tylenol for pain. Return to the emergency room for any worsening symptoms such as fevers or swelling of the knee. Is patient prescribed a controlled substance at d/c from ED?: No Referrals: Emile Olea DO [Doctor of Osteopathic Medicine] - 1-2 days Time of Disposition: 22:42
--- NOTE | 2020-11-01 22:37 | XR ---
EXAMINATION TYPE: XR knee complete LT DATE OF EXAM: 11/01/2020 COMPARISON: NONE HISTORY: Knee pain TECHNIQUE: 3 views FINDINGS: There are adri at the tibial tubercle. I see no fracture nor dislocation. There is no si gn of joint effusion. Joint spaces are fairly normal. IMPRESSION: Negative left knee exam. No fracture.
[2020-11-01 23:06] VITALS: BP 137/72; PULSE 83; RESP 15
== END 2020-11-01 22:57 | disposition home or self-care (01) ==
LOC: EC 21:09
DX: M25.562 Pain in left knee (principal); F17.200 Nicotine dependence, unspecified, uncomplicated; J45.909 Unspecified asthma, uncomplicated; M19.90 Unspecified osteoarthritis, unspecified site; Z79.1 Long term (current) use of non-steroidal anti-inflammatories (NSAID); Z79.51 Long term (current) use of inhaled steroids; Z88.5 Allergy status to narcotic agent
CPT/HCPCS: 73562; 99283; L1830